=== PATIENT | female | born 1955 | race Caucasian/White ===

== ENCOUNTER 2020-02-12 09:50 | Inpatient (IN) | payer OTHER ==
[2020-02-12] MEDS ORDERED: DEXAMETHASONE SOD PHOSPHATE 10 MG/1 ML VIAL ONE (10:04)
[2020-02-12 10:12] LABS: BASO % 0.3 % (0-2.0); HEMATOCRIT 46.1 % (32.4-45.2); LYMPH % 8.2 % (8-40); MCH 29.8 pg (25.7-33.7); MCHC 32.5 g/dl (32.0-36.0); MEAN CELL VOLUME 91.6 fl (80-96); MONO % 6.8 % (3.8-10.2); NEUT % 84.7 % (42.8-82.8); PLATELET COUNT 158 K/MM3 (134-434); RBC 5.03 M/mm3 (3.60-5.2); RDW 14.3 % (11.6-15.6); WHITE BLOOD COUNT 8.1 K/mm3 (4.0-10.0)
[2020-02-12 10:19] LABS: INR 1.22 (0.83-1.09); PROTHROMBIN TIME (PATIENT) 14.7 SEC (9.7-13.0)
[2020-02-12 10:22] LABS: ACTIVATED PTT 28.3 SECONDS (25.2-36.5)
[2020-02-12 10:30] LABS: POTASSIUM 4.7 mmol/L (3.5-5.1)
[2020-02-12 10:32] LABS: ALBUMIN 3.3 g/dl (3.4-5.0); BLOOD UREA NITROGEN 34.2 mg/dL (7-18); CALCIUM 9.2 mg/dL (8.5-10.1)
[2020-02-12 10:35] LABS: CREATININE 1.9 mg/dL (0.55-1.3)
[2020-02-12] MEDS ORDERED: SODIUM CHLORIDE 0.9% 500 ML INFUS.BAG IV ONE (10:35)
[2020-02-12 10:37] LABS: BILIRUBIN,TOTAL 0.6 mg/dL (0.2-1); TOT PROT 6.9 g/dl (6.4-8.2)
[2020-02-12 11:21] LABS: VENOUS PCO2 42.1 mmHg (38-52)
[2020-02-12] MEDS ORDERED: CEFTRIAXONE 1 GM in DEXTROSE 5%-WATER - 100 ML IVPB ONE (11:23)
[2020-02-12] MEDS ORDERED: AZITHROMYCIN IVPB 500 MG in DEXTROSE 5%-WATER - 250 ML IVPB ONE (11:23)
[2020-02-12 11:27] LABS: MAGNESIUM 2.5 mg/dL (1.8-2.4)
[2020-02-12] MEDS ORDERED: CEFTRIAXONE 1 GM/50 ML BAG ONE (11:27)
[2020-02-12] MEDS ORDERED: AZITHROMYCIN IVPB 500 MG/250 ML BAG IVPB ONE (11:27)
[2020-02-12 11:31] LABS: PHOSPHOROUS 7.5 mg/dL (2.5-4.9)
[2020-02-12 11:33] LABS: VENOUS PH 7.151 (7.310-7.410)
[2020-02-12 11:36] LABS: N-TERMINAL BNP 15160.7 pg/ml (5-125)
[2020-02-12] MEDS ORDERED: SODIUM BICARBONATE 8.4% 50 MEQ/50 ML DISP.SYRIN IVPUSH ONE (12:25)
[2020-02-12] MEDS: SODIUM CHLORIDE 1,000 ML IV SCH (13:01)
[2020-02-12 14:11] LABS: ARTERIAL BLD GAS O2 SATURATION 85.2 mmHg (95-98); ARTERIAL BLOOD GAS BASE EXCESS -6.3 mmol/L (-2-2); ARTERIAL BLOOD GAS PO2 53.4 mmHg (80-100); ARTERIAL BLOOD GAS pH 7.317 (7.350-7.450)
[2020-02-12] MEDS ORDERED: ENOXAPARIN NA (PORCINE) 40 MG/0.4 ML DISP.SYRIN SQ SCH (14:20)
[2020-02-12] MEDS ORDERED: CHOLECALCIFEROL (VIT D3) 400 UNIT (10 MCG) TABLET PO SCH (15:00)
[2020-02-12] MEDS: FAMOTIDINE 10 MG TABLET PO SCH (15:25)
[2020-02-12] MEDS: ZINC SULFATE 220 MG CAPSULE (FP) PO SCH (15:26)
[2020-02-12] MEDS ORDERED: ALBUTEROL SO4 2.5/IPRATROPIUM 0.5 INH SOL 3 ML VIAL.NEB. NEB PRN (18:50)
[2020-02-12] MEDS ORDERED: ENOXAPARIN NA (PORCINE) 40 MG/0.4 ML DISP.SYRIN SQ ONE (19:46)
[2020-02-12] MEDS: ENOXAPARIN NA (PORCINE) 40 MG/0.4 ML DISP.SYRIN SQ SCH ×2 (19:55→22:10)
[2020-02-12] MEDS: ASCORBIC ACID 500 MG TABLET (FP) PO SCH (21:46)
[2020-02-12] MEDS: DOXYCYCLINE INJECTION 100 MG in DEXTROSE 5%-WATER - 100 ML IVPB SCH (21:48)
[2020-02-12] MEDS ORDERED: DOXYCYCLINE HYCLATE 100 MG VIAL ONE (21:50)
[2020-02-13] MEDS: SODIUM CHLORIDE 1,000 ML IV SCH (00:28)
[2020-02-13] MEDS ORDERED: SODIUM CHLORIDE 500 ML IV STA (00:54)
[2020-02-13 06:47] LABS: HEMATOCRIT 38.1 % (32.4-45.2); HEMOGLOBIN 12.7 GM/dL (10.7-15.3); LYMPH % 7.2 % (8-40); MCH 29.7 pg (25.7-33.7); MCHC 33.4 g/dl (32.0-36.0); MEAN CELL VOLUME 88.9 fl (80-96); MEAN PLT VOLUME 11.2 fl (7.5-11.1); MONO % 6.9 % (3.8-10.2); NEUT % 85.9 % (42.8-82.8); PLATELET COUNT 115 K/MM3 (134-434); RBC 4.28 M/mm3 (3.60-5.2); RDW 13.8 % (11.6-15.6); WHITE BLOOD COUNT 7.1 K/mm3 (4.0-10.0)
[2020-02-13 07:02] LABS: POTASSIUM 4.4 mmol/L (3.5-5.1)
[2020-02-13 07:04] LABS: ALBUMIN 2.6 g/dl (3.4-5.0); BLOOD UREA NITROGEN 28.7 mg/dL (7-18)
[2020-02-13 07:07] LABS: CREATININE 0.9 mg/dL (0.55-1.3); PHOSPHOROUS 3.2 mg/dL (2.5-4.9)
[2020-02-13 07:09] LABS: BILIRUBIN,TOTAL 0.3 mg/dL (0.2-1); TOT PROT 5.4 g/dl (6.4-8.2)
[2020-02-13] MEDS ORDERED: DEXTROSE 5%-WATER - 50 ML IVPB ONE (09:19)
[2020-02-13] MEDS ORDERED: cefTRIAXone SODIUM 1 GM VIAL ONE (09:19)
[2020-02-13] MEDS: CEFTRIAXONE 1 GM in DEXTROSE 5%-WATER - 50 ML IVPB SCH (09:25)
[2020-02-13] MEDS: DEXAMETHASONE SOD PHOSPHATE 4 MG/1 ML VIAL IVPUSH SCH (09:26)
[2020-02-13] MEDS: APIXABAN 5 MG TABLET PO SCH ×2 (09:26→21:06)
[2020-02-13] MEDS: ZINC SULFATE 220 MG CAPSULE (FP) PO SCH (09:26)
[2020-02-13] MEDS: CHOLECALCIFEROL (VIT D3) 400 UNIT (10 MCG) TABLET PO SCH (09:27)
[2020-02-13] MEDS: FAMOTIDINE 10 MG TABLET PO SCH (09:27)
[2020-02-13] MEDS: ASCORBIC ACID 500 MG TABLET (FP) PO SCH ×2 (09:28→21:06)
[2020-02-13] MEDS: DOXYCYCLINE INJECTION 100 MG in DEXTROSE 5%-WATER - 100 ML IVPB SCH (09:37)
[2020-02-13] MEDS ORDERED: AZITHROMYCIN IVPB 250 MG in DEXTROSE 5%-WATER - 250 ML IVPB SCH (10:00)
[2020-02-13] MEDS ORDERED: DEXAMETHASONE SOD PHOSPHATE 20 MG/5 ML VIAL IVPB SCH (10:00)
[2020-02-13] MEDS ORDERED: REMDESIVIR 200 MG in SODIUM CHLORIDE 210 ML IVPB ONE (12:00)
[2020-02-13] MEDS ORDERED: FUROSEMIDE 40 MG/4 ML INJECTABLE VIAL IVPUSH ONE (15:42)
[2020-02-13 17:39] LABS: EPI CELLS 25 /uL (0-25.1); HYALINE CASTS 11 /uL (0-3.1); URINE APPEARANCE CLOUDY; URINE BACTERIA 14 /uL (0-1359); URINE BILIRUBIN NEGATIVE (NEGATIVE); URINE COLOR YELLOW; URINE GLUCOSE (UA) NEGATIVE (NEGATIVE); URINE KETONE NEGATIVE (NEGATIVE); URINE LEUK ESTERASE NEGATIVE (NEGATIVE); URINE NITRITE NEGATIVE (NEGATIVE); URINE PROTEIN 1+ (NEGATIVE); URINE UROBILINOGEN 0.2 mg/dL (0.2-1.0); URINE WBC 33 /uL (0-25.8)
[2020-02-13 19:00] LABS: URINE RBC 24.6 /uL (0-23.9)
[2020-02-13] MEDS: LORazepam 1 MG TABLET PO PRN (21:06)
[2020-02-13] MEDS: FAMOTIDINE 20 MG TABLET PO SCH (21:06)
[2020-02-14] MEDS ORDERED: DEXTROSE 5%-WATER - 50 ML IVPB ONE (10:19)
[2020-02-14] MEDS ORDERED: cefTRIAXone SODIUM 1 GM VIAL ONE (10:19)
[2020-02-14] MEDS: APIXABAN 5 MG TABLET PO SCH ×2 (10:25→21:11)
[2020-02-14] MEDS: CHOLECALCIFEROL (VIT D3) 400 UNIT (10 MCG) TABLET PO SCH (10:25)
[2020-02-14] MEDS: FAMOTIDINE 20 MG TABLET PO SCH ×2 (10:25→21:11)
[2020-02-14] MEDS: ZINC SULFATE 220 MG CAPSULE (FP) PO SCH (10:25)
[2020-02-14] MEDS: DEXAMETHASONE SOD PHOSPHATE 4 MG/1 ML VIAL IVPUSH SCH (10:25)
[2020-02-14] MEDS: CEFTRIAXONE 1 GM in DEXTROSE 5%-WATER - 50 ML IVPB SCH (10:25)
[2020-02-14] MEDS: ASCORBIC ACID 500 MG TABLET (FP) PO SCH ×2 (10:25→21:11)
[2020-02-14 10:55] LABS: HEMATOCRIT 36.5 % (32.4-45.2); LYMPH % 5.5 % (8-40); MCH 29.5 pg (25.7-33.7); MEAN CELL VOLUME 89.3 fl (80-96); MEAN PLT VOLUME 10.9 fl (7.5-11.1); MONO % 8.5 % (3.8-10.2); PLATELET COUNT 131 K/MM3 (134-434); RBC 4.09 M/mm3 (3.60-5.2); WHITE BLOOD COUNT 8.3 K/mm3 (4.0-10.0)
[2020-02-14 10:58] LABS: INR 1.77 (0.83-1.09); PROTHROMBIN TIME (PATIENT) 21.1 SEC (9.7-13.0)
[2020-02-14 11:11] LABS: POTASSIUM 4.1 mmol/L (3.5-5.1)
[2020-02-14 11:13] LABS: CALCIUM 8.7 mg/dL (8.5-10.1)
[2020-02-14 11:14] LABS: ALBUMIN 2.7 g/dl (3.4-5.0); BLOOD UREA NITROGEN 21.2 mg/dL (7-18); MAGNESIUM 2.1 mg/dL (1.8-2.4)
[2020-02-14 11:17] LABS: CREATININE 0.8 mg/dL (0.55-1.3)
[2020-02-14 11:19] LABS: BILIRUBIN,TOTAL 1.1 mg/dL (0.2-1); PHOSPHOROUS 2.4 mg/dL (2.5-4.9); TOT PROT 5.7 g/dl (6.4-8.2)
[2020-02-14] MEDS ORDERED: REMDESIVIR 100 MG in SODIUM CHLORIDE 230 ML IVPB SCH (12:00)
[2020-02-14] MEDS ORDERED: FUROSEMIDE 40 MG/4 ML INJECTABLE VIAL IVPUSH ONE (16:51)
[2020-02-14 18:32] LABS: ARTERIAL BLD GAS O2 SATURATION 91.4 mmHg (95-98); ARTERIAL BLOOD GAS BASE EXCESS 4.3 mmol/L (-2-2); ARTERIAL BLOOD GAS PO2 58.9 mmHg (80-100); ARTERIAL BLOOD GAS pH 7.441 (7.350-7.450)
[2020-02-14 18:35] LABS: ALLENS TEST POSITIVE; PT'S TEMP 98.6
[2020-02-14 18:36] LABS: VENT MODE S/T; VENT RATE 16
[2020-02-14 21:10] LABS: HEP B CORE AB, TOT Positive (Negative)
[2020-02-14] MEDS: LORazepam 1 MG TABLET PO PRN (21:11)
[2020-02-14] MEDS ORDERED: LORazepam 2 MG/ML SDV VIAL IVPUSH ONE (23:52)
[2020-02-14 23:53] LABS: ARTERIAL BLD GAS O2 SATURATION 92.4 mmHg (95-98); ARTERIAL BLOOD GAS BASE EXCESS 1.7 mmol/L (-2-2); ARTERIAL BLOOD GAS PO2 62.8 mmHg (80-100)
[2020-02-15 00:08] LABS: ALLENS TEST POSITIVE; PT'S TEMP 98.6; VENT RATE 16
[2020-02-15 06:59] LABS: BASO % 0.2 % (0-2.0); HEMATOCRIT 38.9 % (32.4-45.2); HEMOGLOBIN 12.9 GM/dL (10.7-15.3); LYMPH % 3.8 % (8-40); MCH 29.7 pg (25.7-33.7); MCHC 33.1 g/dl (32.0-36.0); MEAN CELL VOLUME 89.7 fl (80-96); MEAN PLT VOLUME 10.6 fl (7.5-11.1); MONO % 7.9 % (3.8-10.2); NEUT % 88.1 % (42.8-82.8); PLATELET COUNT 127 K/MM3 (134-434); RBC 4.34 M/mm3 (3.60-5.2); RDW 13.8 % (11.6-15.6); WHITE BLOOD COUNT 8.9 K/mm3 (4.0-10.0)
[2020-02-15 07:07] LABS: INR 2.25 (0.83-1.09); PROTHROMBIN TIME (PATIENT) 26.6 SEC (9.7-13.0)
[2020-02-15 07:14] LABS: POTASSIUM 3.8 mmol/L (3.5-5.1)
[2020-02-15 07:34] LABS: CALCIUM 9.2 mg/dL (8.5-10.1)
[2020-02-15 07:35] LABS: ALBUMIN 2.8 g/dl (3.4-5.0); MAGNESIUM 2.2 mg/dL (1.8-2.4)
[2020-02-15 07:38] LABS: CREATININE 0.9 mg/dL (0.55-1.3); PHOSPHOROUS 3.7 mg/dL (2.5-4.9)
[2020-02-15 07:39] LABS: BILIRUBIN,TOTAL 0.7 mg/dL (0.2-1)
[2020-02-15] MEDS ORDERED: cefTRIAXone SODIUM 1 GM VIAL ONE (09:12)
[2020-02-15] MEDS ORDERED: DEXTROSE 5%-WATER - 50 ML IVPB ONE (09:12)
[2020-02-15] MEDS: CEFTRIAXONE 1 GM in DEXTROSE 5%-WATER - 50 ML IVPB SCH (09:22)
[2020-02-15] MEDS: DEXAMETHASONE SOD PHOSPHATE 4 MG/1 ML VIAL IVPUSH SCH (09:23)
[2020-02-15] MEDS: CHOLECALCIFEROL (VIT D3) 400 UNIT (10 MCG) TABLET PO SCH (09:24)
[2020-02-15] MEDS: FAMOTIDINE 20 MG TABLET PO SCH (09:24)
[2020-02-15] MEDS: ZINC SULFATE 220 MG CAPSULE (FP) PO SCH (09:24)
[2020-02-15] MEDS: ASCORBIC ACID 500 MG TABLET (FP) PO SCH ×2 (09:25→23:47)
[2020-02-15] MEDS: APIXABAN 5 MG TABLET PO SCH (09:25)
[2020-02-15] MEDS ORDERED: LORazepam 2 MG/ML SDV VIAL ONE (17:22)
[2020-02-15] MEDS ORDERED: LORazepam 2 MG/ML SDV VIAL IVPUSH ONE (18:31)
[2020-02-15] MEDS ORDERED: HALOPERIDOL LACTATE 5 MG/ML ONE (18:54)
[2020-02-15] MEDS ORDERED: HALOPERIDOL LACTATE 5 MG/ML IM ONE (18:54)
[2020-02-15] MEDS ORDERED: SUCCINYLCHOLINE CHLORIDE 200 MG/10 ML VIAL IVPUSH ONE ×2 (19:12→21:01)
[2020-02-15] MEDS ORDERED: SUCCINYLCHOLINE CHLORIDE 200 MG/10 ML SYRINGE IVPUSH ONE (19:12)
[2020-02-15] MEDS ORDERED: RAPID SEQUENCE INTUBATION KIT NR ONE (19:14)
[2020-02-15] MEDS ORDERED: PROPOFOL 1,000,000 MCG/100 ML VIAL ONE (19:45)
[2020-02-15] MEDS ORDERED: PROPOFOL 200 MG/20 ML VIAL IVPUSH ONE (19:48)
[2020-02-15] MEDS ORDERED: ROCURONIUM BROMIDE 50 MG/5 ML VIAL IV ONE (19:49)
[2020-02-15] MEDS: PROPOFOL 1,000,000 MCG/100 ML VIAL IVPB SCH (20:00)
[2020-02-15] MEDS: MIDAZOLAM 100 MG/100 ML MG IVPB SCH (21:00)
[2020-02-15 21:39] LABS: ARTERIAL BLD GAS O2 SATURATION 97.7 mmHg (95-98); ARTERIAL BLOOD GAS BASE EXCESS 6.9 mmol/L (-2-2); ARTERIAL BLOOD GAS PO2 94.3 mmHg (80-100); ARTERIAL BLOOD GAS pH 7.488 (7.350-7.450)
[2020-02-15 21:42] LABS: ALLENS TEST POSITIVE
[2020-02-15 21:43] LABS: VENT MODE A/C; VENT RATE 20
[2020-02-15] MEDS ORDERED: ENOXAPARIN NA (PORCINE) 80 MG/0.8 ML DISP.SYRIN SQ SCH (22:00)
[2020-02-15] MEDS ORDERED: MUPIROCIN 2% TOPICAL OINTMENT FOR DECOLONIZATION NS SCH (22:00)
[2020-02-15] MEDS ORDERED: methylPREDNISolone NA SUCC 40 MG/1 ML VIAL IVPUSH SCH (22:00)
[2020-02-15] MEDS ORDERED: CHLORHEXIDINE GLUCONATE 4% CLEANSER FOR DECOLONIZATION TP SCH (22:00)
[2020-02-16] MEDS ORDERED: ALBUTEROL SO4 2.5/IPRATROPIUM 0.5 INH SOL 3 ML VIAL.NEB. NEB PRN (04:38)
[2020-02-16] MEDS ORDERED: LORazepam 1 MG TABLET PO PRN (04:38)
[2020-02-16 05:23] LABS: ARTERIAL BLD GAS O2 SATURATION 99.1 mmHg (95-98); ARTERIAL BLOOD GAS BASE EXCESS 7.7 mmol/L (-2-2); ARTERIAL BLOOD GAS pH 7.562 (7.350-7.450)
[2020-02-16 05:24] LABS: ALLENS TEST POSITIVE
[2020-02-16 05:25] LABS: VENT MODE A/C; VENT RATE 20
[2020-02-16] MEDS ORDERED: FENTANYL IVPB 500 MCG/100 ML BAG IVPB SCH (07:45)
[2020-02-16] MEDS ORDERED: FENTANYL NS IVPB 500 MCG/100 ML BAG IVPB ONE (07:57)
[2020-02-16] MEDS ORDERED: PT OWN MED DRAWER 7, Y5N ONE (09:05)
[2020-02-16] MEDS: ENOXAPARIN NA (PORCINE) 80 MG/0.8 ML DISP.SYRIN SQ SCH ×2 (09:49→21:58)
[2020-02-16] MEDS: DEXAMETHASONE SOD PHOSPHATE 4 MG/1 ML VIAL IVPUSH SCH (09:50)
[2020-02-16] MEDS: CHOLECALCIFEROL (VIT D3) 1,000 UNIT (25 MCG) TABLET PO SCH (09:50)
[2020-02-16] MEDS: ZINC SULFATE 220 MG CAPSULE (FP) PO SCH (09:50)
[2020-02-16] MEDS: FAMOTIDINE 20 MG/50 ML IVPB 20 MG/50 ML MG IVPB SCH (09:51)
[2020-02-16] MEDS: ASCORBIC ACID 500 MG TABLET (FP) PO SCH ×2 (09:51→21:58)
[2020-02-16] MEDS: LACTATED RINGERS SOLUTION 1,000 ML/1,000 ML INFUS.BAG IV SCH (09:52)
[2020-02-16] MEDS ORDERED: DEXAMETHASONE SOD PHOSPHATE 4 MG/1 ML VIAL IVPUSH SCH (10:00)
[2020-02-16 12:14] LABS: PH,URINE 5.5 (5.0-8.0); URINE APPEARANCE CLEAR; URINE BILIRUBIN NEGATIVE (NEGATIVE); URINE COLOR YELLOW; URINE GLUCOSE (UA) NEGATIVE (NEGATIVE); URINE KETONE NEGATIVE (NEGATIVE); URINE LEUK ESTERASE NEGATIVE (NEGATIVE); URINE NITRITE NEGATIVE (NEGATIVE); URINE PROTEIN NEGATIVE (NEGATIVE); URINE UROBILINOGEN 0.2 mg/dL (0.2-1.0)
[2020-02-16 13:33] LABS: BASO % 0.6 % (0-2.0); EOS % 0.1 % (0-4.5); HEMATOCRIT 40.2 % (32.4-45.2); HEMOGLOBIN 13.2 GM/dL (10.7-15.3); LYMPH % 4.5 % (8-40); MCH 29.5 pg (25.7-33.7); MCHC 32.8 g/dl (32.0-36.0); MEAN PLT VOLUME 10.5 fl (7.5-11.1); MONO % 5.3 % (3.8-10.2); NEUT % 89.5 % (42.8-82.8); PLATELET COUNT 133 K/MM3 (134-434); RBC 4.46 M/mm3 (3.60-5.2); WHITE BLOOD COUNT 8.3 K/mm3 (4.0-10.0)
[2020-02-16 13:56] LABS: POTASSIUM 3.9 mmol/L (3.5-5.1)
[2020-02-16 13:59] LABS: ALBUMIN 2.7 g/dl (3.4-5.0); CALCIUM 9.6 mg/dL (8.5-10.1)
[2020-02-16 14:00] LABS: BLOOD UREA NITROGEN 33.4 mg/dL (7-18)
[2020-02-16 14:01] LABS: MAGNESIUM 2.5 mg/dL (1.8-2.4)
[2020-02-16 14:02] LABS: PHOSPHOROUS 3.7 mg/dL (2.5-4.9)
[2020-02-16 14:03] LABS: CREATININE 0.8 mg/dL (0.55-1.3)
[2020-02-16 14:04] LABS: TOT PROT 6.2 g/dl (6.4-8.2)
[2020-02-16] MEDS: PROPOFOL 1,000,000 MCG/100 ML VIAL IVPB SCH (21:55)
[2020-02-17 05:44] LABS: ALLENS TEST POSITIVE; ARTERIAL BLD GAS O2 SATURATION 94.1 mmHg (95-98); ARTERIAL BLOOD GAS BASE EXCESS 5.7 mmol/L (-2-2); ARTERIAL BLOOD GAS PO2 65.6 mmHg (80-100); ARTERIAL BLOOD GAS pH 7.477 (7.350-7.450)
[2020-02-17 05:46] LABS: VENT MODE A/C
[2020-02-17 05:47] LABS: VENT RATE 20
[2020-02-17 07:47] LABS: BASO % 0.6 % (0-2.0); EOS % 0.1 % (0-4.5); HEMATOCRIT 38.3 % (32.4-45.2); HEMOGLOBIN 12.4 GM/dL (10.7-15.3); LYMPH % 6.4 % (8-40); MCH 29.5 pg (25.7-33.7); MCHC 32.5 g/dl (32.0-36.0); MEAN CELL VOLUME 90.8 fl (80-96); MEAN PLT VOLUME 10.9 fl (7.5-11.1); MONO % 5.1 % (3.8-10.2); NEUT % 87.8 % (42.8-82.8); PLATELET COUNT 146 K/MM3 (134-434); RBC 4.21 M/mm3 (3.60-5.2); RDW 14.1 % (11.6-15.6); WHITE BLOOD COUNT 6.8 K/mm3 (4.0-10.0)
[2020-02-17 08:11] LABS: POTASSIUM 4.7 mmol/L (3.5-5.1)
[2020-02-17 08:19] LABS: BLOOD UREA NITROGEN 35.6 mg/dL (7-18); CALCIUM 9.2 mg/dL (8.5-10.1)
[2020-02-17 08:20] LABS: ALBUMIN 2.5 g/dl (3.4-5.0); MAGNESIUM 2.6 mg/dL (1.8-2.4)
[2020-02-17 08:21] LABS: BILIRUBIN,TOTAL 0.6 mg/dL (0.2-1); TOT PROT 5.8 g/dl (6.4-8.2)
[2020-02-17 08:23] LABS: CREATININE 0.9 mg/dL (0.55-1.3); PHOSPHOROUS 4.7 mg/dL (2.5-4.9)
[2020-02-17] MEDS: LACTATED RINGERS SOLUTION 1,000 ML/1,000 ML INFUS.BAG IV SCH (08:30)
[2020-02-17] MEDS: CHOLECALCIFEROL (VIT D3) 1,000 UNIT (25 MCG) TABLET PO SCH (09:35)
[2020-02-17] MEDS: ZINC SULFATE 220 MG CAPSULE (FP) PO SCH (09:35)
[2020-02-17] MEDS: DEXAMETHASONE SOD PHOSPHATE 4 MG/1 ML VIAL IVPUSH SCH (09:35)
[2020-02-17] MEDS: ASCORBIC ACID 500 MG TABLET (FP) PO SCH ×2 (09:35→21:48)
[2020-02-17] MEDS: FAMOTIDINE 20 MG/50 ML IVPB 20 MG/50 ML MG IVPB SCH (09:35)
[2020-02-17] MEDS: ENOXAPARIN NA (PORCINE) 80 MG/0.8 ML DISP.SYRIN SQ SCH ×2 (09:37→21:48)
[2020-02-17] MEDS ORDERED: ACETAMINOPHEN 325 MG TABLET (FP) PO PRN (10:37)
[2020-02-17] MEDS ORDERED: SODIUM CHLORIDE 0.45% 1,000 ML IV SCH (10:45)
[2020-02-17] MEDS: FENTANYL NS IVPB 500 MCG/100 ML BAG IVPB SCH (17:29)
[2020-02-17] MEDS: MIDAZOLAM 100 MG/100 ML MG IVPB SCH (17:37)
[2020-02-17] MEDS ORDERED: SODIUM CHLORIDE 0.9% 500 ML INFUS.BAG IV ONE (20:13)
[2020-02-17] MEDS ORDERED: FENTANYL IVPB 500 MCG/100 ML BAG IVPB ONE (21:44)
[2020-02-17] MEDS ORDERED: PT OWN MED DRAWER 7, Y5N ONE (21:44)
[2020-02-18] MEDS: NOREPINEPHRINE BITARTRATE 16,000 MCG in SODIUM CHLORIDE 484 ML IV SCH (01:00)
[2020-02-18] MEDS ORDERED: FENTANYL IVPB 500 MCG/100 ML BAG IVPB ONE (05:25)
[2020-02-18 07:27] LABS: BASO % 0.2 % (0-2.0); EOS % 0.1 % (0-4.5); HEMATOCRIT 40.8 % (32.4-45.2); HEMOGLOBIN 13.3 GM/dL (10.7-15.3); MCH 29.5 pg (25.7-33.7); MCHC 32.7 g/dl (32.0-36.0); MEAN CELL VOLUME 90.4 fl (80-96); MEAN PLT VOLUME 10.5 fl (7.5-11.1); MONO % 8.1 % (3.8-10.2); NEUT % 88.6 % (42.8-82.8); PLATELET COUNT 229 K/MM3 (134-434); RBC 4.52 M/mm3 (3.60-5.2); RDW 13.8 % (11.6-15.6); WHITE BLOOD COUNT 12.1 K/mm3 (4.0-10.0)
[2020-02-18 07:44] LABS: POTASSIUM 4.1 mmol/L (3.5-5.1)
[2020-02-18 07:50] LABS: ALBUMIN 2.4 g/dl (3.4-5.0)
[2020-02-18 07:51] LABS: BLOOD UREA NITROGEN 38.8 mg/dL (7-18); CALCIUM 8.8 mg/dL (8.5-10.1)
[2020-02-18 07:52] LABS: MAGNESIUM 2.3 mg/dL (1.8-2.4)
[2020-02-18 07:54] LABS: CREATININE 0.8 mg/dL (0.55-1.3); PHOSPHOROUS 3.9 mg/dL (2.5-4.9)
[2020-02-18 07:55] LABS: BILIRUBIN,TOTAL 0.9 mg/dL (0.2-1); TOT PROT 5.9 g/dl (6.4-8.2)
[2020-02-18] MEDS: DEXAMETHASONE SOD PHOSPHATE 4 MG/1 ML VIAL IVPUSH SCH (09:51)
[2020-02-18] MEDS: FAMOTIDINE 20 MG/50 ML IVPB 20 MG/50 ML MG IVPB SCH (09:53)
[2020-02-18] MEDS: ASCORBIC ACID 500 MG TABLET (FP) PO SCH ×2 (09:53→22:07)
[2020-02-18] MEDS: CHOLECALCIFEROL (VIT D3) 1,000 UNIT (25 MCG) TABLET PO SCH (09:53)
[2020-02-18] MEDS: ENOXAPARIN NA (PORCINE) 80 MG/0.8 ML DISP.SYRIN SQ SCH ×2 (09:53→22:07)
[2020-02-18] MEDS: ZINC SULFATE 220 MG CAPSULE (FP) PO SCH (09:53)
[2020-02-18] MEDS: FENTANYL NS IVPB 500 MCG/100 ML BAG IVPB SCH ×2 (12:42→17:55)
[2020-02-18] MEDS: LACTATED RINGERS SOLUTION 1,000 ML/1,000 ML INFUS.BAG IV SCH (18:32)
[2020-02-18] MEDS ORDERED: MIDAZOLAM IN 0.9 % SOD.CHLORID 1 MG/1 ML PLAST..BAG ONE ×2 (18:35→20:27)
[2020-02-19] MEDS: DEXAMETHASONE SOD PHOSPHATE 4 MG/1 ML VIAL IVPUSH SCH (09:21)
[2020-02-19] MEDS: ENOXAPARIN NA (PORCINE) 80 MG/0.8 ML DISP.SYRIN SQ SCH ×2 (09:26→21:40)
[2020-02-19] MEDS: CHOLECALCIFEROL (VIT D3) 1,000 UNIT (25 MCG) TABLET PO SCH (09:26)
[2020-02-19] MEDS: ZINC SULFATE 220 MG CAPSULE (FP) PO SCH (09:26)
[2020-02-19] MEDS: ASCORBIC ACID 500 MG TABLET (FP) PO SCH ×2 (09:27→21:40)
[2020-02-19] MEDS: FAMOTIDINE 20 MG/50 ML IVPB 20 MG/50 ML MG IVPB SCH (09:27)
[2020-02-19 11:43] LABS: BASO % 0.1 % (0-2.0); EOS % 0.4 % (0-4.5); HEMATOCRIT 37.4 % (32.4-45.2); HEMOGLOBIN 12.4 GM/dL (10.7-15.3); MCH 29.8 pg (25.7-33.7); MCHC 33.1 g/dl (32.0-36.0); MEAN CELL VOLUME 90.1 fl (80-96); MEAN PLT VOLUME 10.3 fl (7.5-11.1); MONO % 0.2 % (3.8-10.2); NEUT % 96.3 % (42.8-82.8); PLATELET COUNT 169 K/MM3 (134-434); RBC 4.16 M/mm3 (3.60-5.2); RDW 13.6 % (11.6-15.6); WHITE BLOOD COUNT 9.6 K/mm3 (4.0-10.0)
[2020-02-19 12:00] LABS: POTASSIUM 4.4 mmol/L (3.5-5.1)
[2020-02-19 12:01] LABS: CALCIUM 8.8 mg/dL (8.5-10.1)
[2020-02-19 12:02] LABS: MAGNESIUM 2.1 mg/dL (1.8-2.4)
[2020-02-19 12:05] LABS: CREATININE 0.6 mg/dL (0.55-1.3); PHOSPHOROUS 2.3 mg/dL (2.5-4.9)
[2020-02-19 12:07] LABS: TOT PROT 5.2 g/dl (6.4-8.2)
[2020-02-19 12:33] LABS: ANISOCYTOSIS 0; HELMET CELLS 0; HOWELL-JOLLY BODIES 0; MACROCYTOSIS 0; OVALOCYTE 0; PLATELET ESTIMATE NORMAL; ROULEAU 0; SICKELED CELLS 0; TARGET CELLS 0; TEAR DROP CELLS 0; TOXIC GRANULATION 0
[2020-02-19] MEDS ORDERED: FENTANYL IVPB 500 MCG/100 ML BAG IVPB ONE (15:59)
[2020-02-19] MEDS: LACTATED RINGERS SOLUTION 1,000 ML/1,000 ML INFUS.BAG IV SCH (18:25)
[2020-02-19] MEDS: FENTANYL NS IVPB 500 MCG/100 ML BAG IVPB SCH (19:05)
[2020-02-19] MEDS ORDERED: MIDAZOLAM IN 0.9 % SOD.CHLORID 1 MG/1 ML PLAST..BAG ONE (22:04)
[2020-02-20 07:49] LABS: BASO % 0.2 % (0-2.0); EOS % 0.1 % (0-4.5); HEMATOCRIT 37.5 % (32.4-45.2); HEMOGLOBIN 12.3 GM/dL (10.7-15.3); LYMPH % 5.6 % (8-40); MCH 29.2 pg (25.7-33.7); MCHC 32.8 g/dl (32.0-36.0); MEAN CELL VOLUME 89.1 fl (80-96); MEAN PLT VOLUME 11.2 fl (7.5-11.1); MONO % 7.5 % (3.8-10.2); NEUT % 86.6 % (42.8-82.8); PLATELET COUNT 186 K/MM3 (134-434); RBC 4.21 M/mm3 (3.60-5.2); RDW 13.5 % (11.6-15.6); WHITE BLOOD COUNT 8.2 K/mm3 (4.0-10.0)
[2020-02-20 07:53] LABS: POTASSIUM 4.7 mmol/L (3.5-5.1)
[2020-02-20 07:55] LABS: BLOOD UREA NITROGEN 30.2 mg/dL (7-18)
[2020-02-20 07:58] LABS: CREATININE 0.5 mg/dL (0.55-1.3)
[2020-02-20 08:00] LABS: BILIRUBIN,TOTAL 0.5 mg/dL (0.2-1); TOT PROT 5.2 g/dl (6.4-8.2)
[2020-02-20] MEDS: FAMOTIDINE 20 MG/50 ML IVPB 20 MG/50 ML MG IVPB SCH (09:51)
[2020-02-20] MEDS: DEXAMETHASONE SOD PHOSPHATE 4 MG/1 ML VIAL IVPUSH SCH (09:52)
[2020-02-20] MEDS: CHOLECALCIFEROL (VIT D3) 1,000 UNIT (25 MCG) TABLET PO SCH (09:53)
[2020-02-20] MEDS: ASCORBIC ACID 500 MG TABLET (FP) PO SCH ×2 (09:53→22:57)
[2020-02-20] MEDS: ENOXAPARIN NA (PORCINE) 80 MG/0.8 ML DISP.SYRIN SQ SCH ×2 (10:43→22:57)
[2020-02-20] MEDS: ZINC SULFATE 220 MG CAPSULE (FP) PO SCH (10:43)
[2020-02-20] MEDS ORDERED: MIDAZOLAM IN 0.9 % SOD.CHLORID 1 MG/1 ML PLAST..BAG ONE (11:14)
[2020-02-20] MEDS ORDERED: FENTANYL IVPB 500 MCG/100 ML BAG IVPB ONE (11:15)
[2020-02-20] MEDS: MIDAZOLAM 100 MG/100 ML MG IVPB SCH ×2 (11:18→19:30)
[2020-02-20] MEDS: FENTANYL NS IVPB 500 MCG/100 ML BAG IVPB SCH ×3 (11:19→19:15)
[2020-02-20] MEDS ORDERED: FENTANYL NS IVPB 500 MCG/100 ML BAG IVPB ONE (17:46)
[2020-02-20] MEDS ORDERED: BENZOIN/ALOE VERA/STORAX/TOLU 58 ML BOTTLE ONE (17:49)
[2020-02-20] MEDS: LACTATED RINGERS SOLUTION 1,000 ML/1,000 ML INFUS.BAG IV SCH (19:00)
[2020-02-20] MEDS: NOREPINEPHRINE BITARTRATE 16,000 MCG in SODIUM CHLORIDE 484 ML IV SCH (22:45)
[2020-02-21] MEDS: FENTANYL NS IVPB 500 MCG/100 ML BAG IVPB SCH ×4 (01:05→21:25)
[2020-02-21] MEDS ORDERED: MIDAZOLAM IN 0.9 % SOD.CHLORID 1 MG/1 ML PLAST..BAG ONE ×2 (01:47→17:37)
[2020-02-21 07:25] LABS: BASO % 0.2 % (0-2.0); EOS % 0.2 % (0-4.5); HEMATOCRIT 37.1 % (32.4-45.2); HEMOGLOBIN 12.2 GM/dL (10.7-15.3); LYMPH % 5.3 % (8-40); MCH 29.5 pg (25.7-33.7); MCHC 32.8 g/dl (32.0-36.0); MEAN CELL VOLUME 89.9 fl (80-96); MEAN PLT VOLUME 11.5 fl (7.5-11.1); MONO % 8.2 % (3.8-10.2); NEUT % 86.1 % (42.8-82.8); PLATELET COUNT 196 K/MM3 (134-434); RBC 4.12 M/mm3 (3.60-5.2); RDW 13.7 % (11.6-15.6); WHITE BLOOD COUNT 9.6 K/mm3 (4.0-10.0)
[2020-02-21 07:45] LABS: ALBUMIN 2.1 g/dl (3.4-5.0); CALCIUM 8.8 mg/dL (8.5-10.1)
[2020-02-21 07:46] LABS: BLOOD UREA NITROGEN 38.4 mg/dL (7-18); MAGNESIUM 2.1 mg/dL (1.8-2.4)
[2020-02-21 07:48] LABS: CREATININE 0.5 mg/dL (0.55-1.3)
[2020-02-21 07:49] LABS: PHOSPHOROUS 3.5 mg/dL (2.5-4.9)
[2020-02-21 07:50] LABS: BILIRUBIN,TOTAL 0.7 mg/dL (0.2-1); TOT PROT 5.5 g/dl (6.4-8.2)
[2020-02-21] MEDS ORDERED: FENTANYL IVPB 500 MCG/100 ML BAG IVPB ONE (08:06)
[2020-02-21] MEDS ORDERED: PT OWN MED DRAWER 7, Y5N ONE (08:07)
[2020-02-21] MEDS: LACTATED RINGERS SOLUTION 1,000 ML/1,000 ML INFUS.BAG IV SCH ×2 (08:15→18:38)
[2020-02-21] MEDS ORDERED: FENTANYL NS IVPB 500 MCG/100 ML BAG IVPB ONE (08:33)
[2020-02-21] MEDS: AMINO ACIDS/PROTEIN HYDROLYS 30 ML LIQUID.PKT PO SCH (09:50)
[2020-02-21] MEDS: FAMOTIDINE 20 MG/50 ML IVPB 20 MG/50 ML MG IVPB SCH (10:08)
[2020-02-21] MEDS: CHOLECALCIFEROL (VIT D3) 1,000 UNIT (25 MCG) TABLET PO SCH (10:13)
[2020-02-21] MEDS: ENOXAPARIN NA (PORCINE) 80 MG/0.8 ML DISP.SYRIN SQ SCH ×2 (10:13→23:43)
[2020-02-21] MEDS: ASCORBIC ACID 500 MG TABLET (FP) PO SCH ×2 (10:14→23:44)
[2020-02-21] MEDS: DEXAMETHASONE SOD PHOSPHATE 4 MG/1 ML VIAL IVPUSH SCH (10:14)
[2020-02-21] MEDS: ZINC SULFATE 220 MG CAPSULE (FP) PO SCH (10:14)
[2020-02-21] MEDS: MIDAZOLAM 100 MG/100 ML MG IVPB SCH (14:37)
[2020-02-21] MEDS ORDERED: ACETAMINOPHEN 1000 MG/100 ML VIAL (NON FORMULARY) IVPB PRN (17:58)
[2020-02-21] MEDS ORDERED: NOREPINEPHRINE D5W PREMIX 16,000 MCG/500 ML BAG IVPB ONE (19:13)
[2020-02-21] MEDS ORDERED: VANCOMYCIN/WATER 1,250 MG/250 ML BAG IVPB STA (19:58)
[2020-02-21] MEDS ORDERED: PIPERACILLIN/TAZOB 3.375 GM 3.375 GM in DEXTROSE 5%-WATER - 50 ML IVPB ONE (19:59)
[2020-02-21] MEDS ORDERED: VANCOMYCIN HCL 1,250 MG in DEXTROSE 5%-WATER - 250 ML IVPB ONE (20:15)
[2020-02-21] MEDS ORDERED: PIPERACILLIN/TAZOBACTAM 3.375 GM VIAL IVPB ONE (20:41)
[2020-02-21] MEDS ORDERED: DEXTROSE 5%-WATER - 50 ML IVPB ONE (20:41)
[2020-02-21] MEDS: NOREPINEPHRINE BITARTRATE 16,000 MCG in SODIUM CHLORIDE 484 ML IV SCH (22:00)
[2020-02-22] MEDS: FENTANYL NS IVPB 500 MCG/100 ML BAG IVPB SCH ×3 (04:37→15:29)
[2020-02-22 07:12] LABS: BASO % 0.4 % (0-2.0); HEMATOCRIT 37.8 % (32.4-45.2); HEMOGLOBIN 12.4 GM/dL (10.7-15.3); LYMPH % 3.3 % (8-40); MCH 29.3 pg (25.7-33.7); MCHC 32.9 g/dl (32.0-36.0); MEAN CELL VOLUME 89.2 fl (80-96); MEAN PLT VOLUME 11.1 fl (7.5-11.1); MONO % 5.7 % (3.8-10.2); NEUT % 90.6 % (42.8-82.8); PLATELET COUNT 206 K/MM3 (134-434); RBC 4.24 M/mm3 (3.60-5.2); RDW 13.7 % (11.6-15.6); WHITE BLOOD COUNT 12.2 K/mm3 (4.0-10.0)
[2020-02-22 07:20] LABS: POTASSIUM 4.5 mmol/L (3.5-5.1)
[2020-02-22 07:22] LABS: CALCIUM 8.6 mg/dL (8.5-10.1)
[2020-02-22 07:23] LABS: BLOOD UREA NITROGEN 34.9 mg/dL (7-18)
[2020-02-22 07:26] LABS: CREATININE 0.6 mg/dL (0.55-1.3); PHOSPHOROUS 3.7 mg/dL (2.5-4.9)
[2020-02-22 07:27] LABS: BILIRUBIN,TOTAL 0.6 mg/dL (0.2-1); TOT PROT 5.5 g/dl (6.4-8.2)
[2020-02-22] MEDS ORDERED: MIDAZOLAM IN 0.9 % SOD.CHLORID 1 MG/1 ML PLAST..BAG ONE (08:20)
[2020-02-22] MEDS: MIDAZOLAM 100 MG/100 ML MG IVPB SCH (08:30)
[2020-02-22] MEDS: AMINO ACIDS/PROTEIN HYDROLYS 30 ML LIQUID.PKT PO SCH (08:44)
[2020-02-22] MEDS: FAMOTIDINE 20 MG/50 ML IVPB 20 MG/50 ML MG IVPB SCH (09:44)
[2020-02-22] MEDS: ENOXAPARIN NA (PORCINE) 80 MG/0.8 ML DISP.SYRIN SQ SCH ×2 (09:46→22:28)
[2020-02-22] MEDS: ZINC SULFATE 220 MG CAPSULE (FP) PO SCH (09:47)
[2020-02-22] MEDS: CHOLECALCIFEROL (VIT D3) 1,000 UNIT (25 MCG) TABLET PO SCH (09:47)
[2020-02-22] MEDS: ASCORBIC ACID 500 MG TABLET (FP) PO SCH ×2 (09:47→22:28)
[2020-02-22] MEDS: DEXAMETHASONE SOD PHOSPHATE 4 MG/1 ML VIAL IVPUSH SCH (09:47)
[2020-02-22] MEDS: LACTATED RINGERS SOLUTION 1,000 ML/1,000 ML INFUS.BAG IV SCH ×2 (09:48→18:19)
[2020-02-22] MEDS ORDERED: PIPERACILLIN/TAZOBACTAM 3.375 GM VIAL IVPB ONE (15:24)
[2020-02-22] MEDS ORDERED: DEXTROSE 5%-WATER - 50 ML IVPB ONE (15:24)
[2020-02-22] MEDS: PIPERACILLIN/TAZOB 3.375 GM 3.375 GM in DEXTROSE 5%-WATER - 50 ML IVPB SCH (15:28)
[2020-02-23] MEDS: FENTANYL NS IVPB 500 MCG/100 ML BAG IVPB SCH ×4 (01:05→13:18)
[2020-02-23] MEDS ORDERED: MIDAZOLAM IN 0.9 % SOD.CHLORID 1 MG/1 ML PLAST..BAG ONE ×2 (02:04→09:16)
[2020-02-23] MEDS ORDERED: PIPERACILLIN/TAZOBACTAM 3.375 GM VIAL IVPB ONE ×3 (03:15→16:40)
[2020-02-23] MEDS ORDERED: DEXTROSE 5%-WATER - 50 ML IVPB ONE ×3 (03:15→16:41)
[2020-02-23] MEDS: PIPERACILLIN/TAZOB 3.375 GM 3.375 GM in DEXTROSE 5%-WATER - 50 ML IVPB SCH ×3 (03:20→17:01)
[2020-02-23] MEDS: MIDAZOLAM 100 MG/100 ML MG IVPB SCH ×4 (03:21→10:05)
[2020-02-23] MEDS: NOREPINEPHRINE BITARTRATE 16,000 MCG in SODIUM CHLORIDE 484 ML IV SCH (03:24)
[2020-02-23 08:01] LABS: BASO % 0.9 % (0-2.0); EOS % 0.1 % (0-4.5); HEMATOCRIT 34.3 % (32.4-45.2); HEMOGLOBIN 11.1 GM/dL (10.7-15.3); LYMPH % 3.9 % (8-40); MCHC 32.4 g/dl (32.0-36.0); MEAN CELL VOLUME 89.5 fl (80-96); MONO % 7.5 % (3.8-10.2); NEUT % 87.6 % (42.8-82.8); PLATELET COUNT 197 K/MM3 (134-434); RBC 3.83 M/mm3 (3.60-5.2); RDW 13.6 % (11.6-15.6)
[2020-02-23 08:10] LABS: POTASSIUM 4.5 mmol/L (3.5-5.1)
[2020-02-23 08:15] LABS: ALBUMIN 1.9 g/dl (3.4-5.0); BLOOD UREA NITROGEN 33.3 mg/dL (7-18); CALCIUM 8.9 mg/dL (8.5-10.1); MAGNESIUM 2.1 mg/dL (1.8-2.4)
[2020-02-23 08:18] LABS: CREATININE 0.4 mg/dL (0.55-1.3); PHOSPHOROUS 2.8 mg/dL (2.5-4.9)
[2020-02-23 08:19] LABS: BILIRUBIN,TOTAL 0.4 mg/dL (0.2-1); TOT PROT 5.1 g/dl (6.4-8.2)
[2020-02-23] MEDS: AMINO ACIDS/PROTEIN HYDROLYS 30 ML LIQUID.PKT PO SCH (09:04)
[2020-02-23] MEDS: FAMOTIDINE 20 MG/50 ML IVPB 20 MG/50 ML MG IVPB SCH (09:09)
[2020-02-23] MEDS: DEXAMETHASONE SOD PHOSPHATE 4 MG/1 ML VIAL IVPUSH SCH (09:10)
[2020-02-23] MEDS: ZINC SULFATE 220 MG CAPSULE (FP) PO SCH (09:11)
[2020-02-23] MEDS: CHOLECALCIFEROL (VIT D3) 1,000 UNIT (25 MCG) TABLET PO SCH (09:11)
[2020-02-23] MEDS: ASCORBIC ACID 500 MG TABLET (FP) PO SCH (09:11)
[2020-02-23] MEDS ORDERED: ENOXAPARIN NA (PORCINE) 80 MG/0.8 ML DISP.SYRIN SQ SCH (10:00)
[2020-02-23] MEDS: ENOXAPARIN NA (PORCINE) 80 MG/0.8 ML DISP.SYRIN SQ SCH ×2 (10:05→23:25)
[2020-02-23] MEDS ORDERED: DOCUSATE SODIUM 100 MG CAPSULE (FP) PO SCH (11:15)
[2020-02-23] MEDS: DOCUSATE NA 100 MG/10 ML UNIT-DOSE CUPS NGT SCH (13:17)
[2020-02-23] MEDS: POLYETHYLENE GLYCOL 3350 119 GM BTL NGT SCH (13:17)
[2020-02-23] MEDS ORDERED: FENTANYL NS IVPB 500 MCG/100 ML BAG IVPB ONE (18:16)
[2020-02-23] MEDS ORDERED: SODIUM BICARBONATE 8.4% 50 MEQ/50 ML VIAL ONE (19:41)
[2020-02-23] MEDS ORDERED: DEXAMETHASONE SOD PHOSPHATE 4 MG/1 ML VIAL IVPUSH ONE (22:00)
[2020-02-23] MEDS: SENNOSIDES 8.8 MG/5 ML BULK BOTTLE NGT SCH (23:27)
[2020-02-23] MEDS: ASCORBIC ACID 500 MG TABLET (FP) NGT SCH (23:27)
[2020-02-24] MEDS ORDERED: DEXTROSE 5%-WATER - 50 ML IVPB ONE ×3 (02:50→17:11)
[2020-02-24] MEDS ORDERED: PIPERACILLIN/TAZOBACTAM 3.375 GM VIAL IVPB ONE ×3 (02:50→17:10)
[2020-02-24] MEDS: PIPERACILLIN/TAZOB 3.375 GM 3.375 GM in DEXTROSE 5%-WATER - 50 ML IVPB SCH ×3 (02:52→17:13)
[2020-02-24] MEDS: LACTATED RINGERS SOLUTION 1,000 ML/1,000 ML INFUS.BAG IV SCH ×3 (02:53→18:20)
[2020-02-24] MEDS: FENTANYL NS IVPB 500 MCG/100 ML BAG IVPB SCH ×4 (02:54→22:25)
[2020-02-24] MEDS ORDERED: INSULIN (NOVOLOG) ASPART 100 UNITS/ML 10ML VIAL ONE (06:39)
[2020-02-24 06:44] LABS: BASO % 0.4 % (0-2.0); HEMATOCRIT 32.5 % (32.4-45.2); HEMOGLOBIN 10.7 GM/dL (10.7-15.3); LYMPH % 3.6 % (8-40); MCH 29.6 pg (25.7-33.7); MEAN CELL VOLUME 89.7 fl (80-96); MEAN PLT VOLUME 10.9 fl (7.5-11.1); MONO % 4.2 % (3.8-10.2); NEUT % 91.8 % (42.8-82.8); PLATELET COUNT 185 K/MM3 (134-434); RBC 3.63 M/mm3 (3.60-5.2); RDW 13.7 % (11.6-15.6); WHITE BLOOD COUNT 8.9 K/mm3 (4.0-10.0)
[2020-02-24 07:04] LABS: POTASSIUM 4.6 mmol/L (3.5-5.1)
[2020-02-24 07:10] LABS: ALBUMIN 1.8 g/dl (3.4-5.0); BLOOD UREA NITROGEN 34.6 mg/dL (7-18); CALCIUM 8.5 mg/dL (8.5-10.1); MAGNESIUM 1.9 mg/dL (1.8-2.4)
[2020-02-24 07:12] LABS: CREATININE 0.5 mg/dL (0.55-1.3); PHOSPHOROUS 3.4 mg/dL (2.5-4.9)
[2020-02-24 07:14] LABS: BILIRUBIN,TOTAL 0.5 mg/dL (0.2-1)
[2020-02-24] MEDS ORDERED: PT OWN MED DRAWER 7, Y5N ONE ×6 (08:57→22:04)
[2020-02-24] MEDS: ENOXAPARIN NA (PORCINE) 80 MG/0.8 ML DISP.SYRIN SQ SCH ×2 (09:04→22:23)
[2020-02-24] MEDS: FAMOTIDINE 20 MG/50 ML IVPB 20 MG/50 ML MG IVPB SCH (09:04)
[2020-02-24] MEDS: DEXAMETHASONE SOD PHOSPHATE 4 MG/1 ML VIAL IVPUSH SCH (09:05)
[2020-02-24] MEDS: DOCUSATE NA 100 MG/10 ML UNIT-DOSE CUPS NGT SCH (09:05)
[2020-02-24] MEDS: CHOLECALCIFEROL (VIT D3) 1,000 UNIT (25 MCG) TABLET NR SCH (09:05)
[2020-02-24] MEDS: AMINO ACIDS/PROTEIN HYDROLYS 30 ML LIQUID.PKT NGT SCH (09:06)
[2020-02-24] MEDS: ZINC SULFATE 220 MG CAPSULE (FP) NGT SCH (09:37)
[2020-02-24] MEDS: ASCORBIC ACID 500 MG TABLET (FP) NGT SCH ×2 (09:38→22:25)
[2020-02-24] MEDS: POLYETHYLENE GLYCOL 3350 119 GM BTL NGT SCH (09:55)
[2020-02-24] MEDS ORDERED: FUROSEMIDE 40 MG/4 ML INJECTABLE VIAL IVPUSH ONE (13:30)
[2020-02-24] MEDS ORDERED: ROCURONIUM BROMIDE 50 MG/5 ML VIAL IV ONE (13:56)
[2020-02-24] MEDS ORDERED: RAPID SEQUENCE INTUBATION KIT NR ONE (14:00)
[2020-02-24] MEDS ORDERED: FENTANYL NS IVPB 500 MCG/100 ML BAG IVPB ONE (14:47)
[2020-02-24] MEDS ORDERED: ROCURONIUM BROMIDE IVPB SCH (15:15)
[2020-02-24] MEDS: VECURONIUM BROMIDE 100 MG/100 ML BAG IVPB SCH (15:58)
[2020-02-24] MEDS: MIDODRINE HCL 2.5 MG TABLET NGT SCH ×2 (16:34→18:19)
[2020-02-24] MEDS: MIDAZOLAM 100 MG/100 ML MG IVPB SCH (22:23)
[2020-02-24] MEDS: SENNOSIDES 8.8 MG/5 ML BULK BOTTLE NGT SCH (22:24)
[2020-02-25] MEDS ORDERED: DEXTROSE 5%-WATER - 50 ML IVPB ONE ×3 (01:44→17:03)
[2020-02-25] MEDS ORDERED: PIPERACILLIN/TAZOBACTAM 3.375 GM VIAL IVPB ONE ×3 (01:44→17:03)
[2020-02-25] MEDS: PIPERACILLIN/TAZOB 3.375 GM 3.375 GM in DEXTROSE 5%-WATER - 50 ML IVPB SCH ×3 (02:26→17:12)
[2020-02-25] MEDS: FENTANYL NS IVPB 500 MCG/100 ML BAG IVPB SCH ×5 (04:32→20:35)
[2020-02-25 06:28] LABS: ARTERIAL BLD GAS O2 SATURATION 97.4 mmHg (95-98); ARTERIAL BLOOD GAS BASE EXCESS 6.1 mmol/L (-2-2); ARTERIAL BLOOD GAS PO2 98.8 mmHg (80-100); ARTERIAL BLOOD GAS pH 7.405 (7.350-7.450)
[2020-02-25 06:41] LABS: ALLENS TEST POSITIVE
[2020-02-25 06:42] LABS: VENT MODE A/C; VENT RATE 20
[2020-02-25] MEDS: VECURONIUM BROMIDE 100 MG/100 ML BAG IVPB SCH ×2 (07:07→16:57)
[2020-02-25 07:24] LABS: MCH 29.9 pg (25.7-33.7); MCHC 33.3 g/dl (32.0-36.0); MEAN CELL VOLUME 89.8 fl (80-96); MEAN PLT VOLUME 11.6 fl (7.5-11.1); PLATELET COUNT 153 K/MM3 (134-434); RBC 3.68 M/mm3 (3.60-5.2); RDW 13.7 % (11.6-15.6); WHITE BLOOD COUNT 7.6 K/mm3 (4.0-10.0)
[2020-02-25 07:38] LABS: POTASSIUM 4.1 mmol/L (3.5-5.1)
[2020-02-25 07:45] LABS: ALBUMIN 1.8 g/dl (3.4-5.0); CALCIUM 8.8 mg/dL (8.5-10.1)
[2020-02-25 07:46] LABS: BLOOD UREA NITROGEN 37.5 mg/dL (7-18); MAGNESIUM 1.8 mg/dL (1.8-2.4)
[2020-02-25 07:49] LABS: BILIRUBIN,DIRECT 0.2 mg/dL (0.0-0.2); CREATININE 0.5 mg/dL (0.55-1.3); PHOSPHOROUS 2.8 mg/dL (2.5-4.9)
[2020-02-25 07:50] LABS: BILIRUBIN,TOTAL 0.6 mg/dL (0.2-1); TOT PROT 4.9 g/dl (6.4-8.2)
[2020-02-25] MEDS: AMINO ACIDS/PROTEIN HYDROLYS 30 ML LIQUID.PKT NGT SCH (08:48)
[2020-02-25] MEDS: FAMOTIDINE 20 MG/50 ML IVPB 20 MG/50 ML MG IVPB SCH (09:02)
[2020-02-25] MEDS: CHOLECALCIFEROL (VIT D3) 1,000 UNIT (25 MCG) TABLET NR SCH (09:03)
[2020-02-25] MEDS: ENOXAPARIN NA (PORCINE) 80 MG/0.8 ML DISP.SYRIN SQ SCH ×2 (09:03→22:13)
[2020-02-25] MEDS: DOCUSATE NA 100 MG/10 ML UNIT-DOSE CUPS NGT SCH (09:03)
[2020-02-25] MEDS: DEXAMETHASONE SOD PHOSPHATE 4 MG/1 ML VIAL IVPUSH SCH (09:03)
[2020-02-25] MEDS: POLYETHYLENE GLYCOL 3350 119 GM BTL NGT SCH (09:03)
[2020-02-25] MEDS: ASCORBIC ACID 500 MG TABLET (FP) NGT SCH ×2 (09:03→22:13)
[2020-02-25] MEDS: ZINC SULFATE 220 MG CAPSULE (FP) NGT SCH (09:03)
[2020-02-25] MEDS: MIDODRINE HCL 2.5 MG TABLET NGT SCH ×3 (09:04→17:12)
[2020-02-25 12:49] LABS: URINE APPEARANCE CLEAR; URINE BILIRUBIN NEGATIVE (NEGATIVE); URINE COLOR YELLOW; URINE GLUCOSE (UA) NEGATIVE (NEGATIVE); URINE KETONE NEGATIVE (NEGATIVE); URINE LEUK ESTERASE NEGATIVE (NEGATIVE); URINE NITRITE NEGATIVE (NEGATIVE); URINE PROTEIN NEGATIVE (NEGATIVE)
[2020-02-25] MEDS: NOREPINEPHRINE BITARTRATE 16,000 MCG in SODIUM CHLORIDE 484 ML IV SCH (13:00)
[2020-02-25] MEDS ORDERED: NOREPINEPHRINE D5W PREMIX 16,000 MCG/500 ML BAG IVPB ONE (13:11)
[2020-02-25] MEDS: MIDAZOLAM 100 MG/100 ML MG IVPB SCH (14:45)
[2020-02-25] MEDS ORDERED: PT OWN MED DRAWER 7, Y5N ONE ×2 (17:03→22:11)
[2020-02-25] MEDS: LACTATED RINGERS SOLUTION 1,000 ML/1,000 ML INFUS.BAG IV SCH (18:15)
[2020-02-25] MEDS: SENNOSIDES 8.8 MG/5 ML BULK BOTTLE NGT SCH (22:13)
[2020-02-26] MEDS: FENTANYL NS IVPB 500 MCG/100 ML BAG IVPB SCH ×3 (02:14→15:45)
[2020-02-26] MEDS: PIPERACILLIN/TAZOB 3.375 GM 3.375 GM in DEXTROSE 5%-WATER - 50 ML IVPB SCH ×4 (03:00→18:05)
[2020-02-26] MEDS ORDERED: DEXTROSE 5%-WATER - 50 ML IVPB ONE ×3 (06:28→18:04)
[2020-02-26] MEDS ORDERED: PIPERACILLIN/TAZOBACTAM 3.375 GM VIAL IVPB ONE ×3 (06:28→18:04)
[2020-02-26] MEDS ORDERED: MIDAZOLAM 100 MG/100 ML MG IVPB ONE ×2 (06:28→22:51)
[2020-02-26] MEDS: MIDAZOLAM 100 MG/100 ML MG IVPB SCH (06:36)
[2020-02-26] MEDS: LACTATED RINGERS SOLUTION 1,000 ML/1,000 ML INFUS.BAG IV SCH (06:37)
[2020-02-26 06:47] LABS: BASO % 0.4 % (0-2.0); EOS % 0.4 % (0-4.5); HEMATOCRIT 33.3 % (32.4-45.2); HEMOGLOBIN 10.9 GM/dL (10.7-15.3); LYMPH % 8.7 % (8-40); MCH 29.4 pg (25.7-33.7); MCHC 32.7 g/dl (32.0-36.0); MEAN PLT VOLUME 11.1 fl (7.5-11.1); MONO % 6.2 % (3.8-10.2); NEUT % 84.3 % (42.8-82.8); PLATELET COUNT 158 K/MM3 (134-434); RDW 13.3 % (11.6-15.6); WHITE BLOOD COUNT 8.1 K/mm3 (4.0-10.0)
[2020-02-26 07:04] LABS: POTASSIUM 4.3 mmol/L (3.5-5.1)
[2020-02-26 07:06] LABS: ALBUMIN 1.7 g/dl (3.4-5.0); BLOOD UREA NITROGEN 34.5 mg/dL (7-18); CALCIUM 8.6 mg/dL (8.5-10.1); MAGNESIUM 2.1 mg/dL (1.8-2.4)
[2020-02-26 07:10] LABS: CREATININE 0.4 mg/dL (0.55-1.3); PHOSPHOROUS 2.8 mg/dL (2.5-4.9)
[2020-02-26 07:11] LABS: BILIRUBIN,TOTAL 0.4 mg/dL (0.2-1); TOT PROT 4.8 g/dl (6.4-8.2)
[2020-02-26] MEDS: VECURONIUM BROMIDE 100 MG/100 ML BAG IVPB SCH ×2 (08:08→15:39)
[2020-02-26] MEDS: AMINO ACIDS/PROTEIN HYDROLYS 30 ML LIQUID.PKT NGT SCH (08:10)
[2020-02-26 08:53] LABS: ALLENS TEST POSITIVE; ARTERIAL BLD GAS O2 SATURATION 92.4 mmHg (95-98); ARTERIAL BLOOD GAS BASE EXCESS 5.5 mmol/L (-2-2); ARTERIAL BLOOD GAS PO2 63.9 mmHg (80-100); ARTERIAL BLOOD GAS pH 7.412 (7.350-7.450)
[2020-02-26 08:54] LABS: VENT MODE AC; VENT RATE 20
[2020-02-26] MEDS: DEXAMETHASONE SOD PHOSPHATE 4 MG/1 ML VIAL IVPUSH SCH (10:09)
[2020-02-26] MEDS: DOCUSATE NA 100 MG/10 ML UNIT-DOSE CUPS NGT SCH (10:09)
[2020-02-26] MEDS: ASCORBIC ACID 500 MG TABLET (FP) NGT SCH ×2 (10:10→22:00)
[2020-02-26] MEDS: ZINC SULFATE 220 MG CAPSULE (FP) NGT SCH (10:15)
[2020-02-26] MEDS: FAMOTIDINE 20 MG/50 ML IVPB 20 MG/50 ML MG IVPB SCH (10:15)
[2020-02-26] MEDS: POLYETHYLENE GLYCOL 3350 119 GM BTL NGT SCH (10:17)
[2020-02-26] MEDS: ENOXAPARIN NA (PORCINE) 80 MG/0.8 ML DISP.SYRIN SQ SCH ×2 (10:17→21:59)
[2020-02-26] MEDS: CHOLECALCIFEROL (VIT D3) 1,000 UNIT (25 MCG) TABLET NR SCH (10:18)
[2020-02-26] MEDS: MIDODRINE HCL 2.5 MG TABLET NGT SCH ×3 (10:21→18:06)
[2020-02-26 20:20] LABS: HIV INTERPRETATION NEGATIVE (NEGATIVE)
[2020-02-26] MEDS: SENNOSIDES 8.8 MG/5 ML BULK BOTTLE NGT SCH (22:00)
[2020-02-27] MEDS: FENTANYL NS IVPB 500 MCG/100 ML BAG IVPB SCH ×3 (01:20→22:28)
[2020-02-27] MEDS ORDERED: DEXTROSE 5%-WATER - 50 ML IVPB ONE ×3 (01:31→16:55)
[2020-02-27] MEDS ORDERED: PIPERACILLIN/TAZOBACTAM 3.375 GM VIAL IVPB ONE ×3 (01:31→16:55)
[2020-02-27] MEDS: PIPERACILLIN/TAZOB 3.375 GM 3.375 GM in DEXTROSE 5%-WATER - 50 ML IVPB SCH ×3 (01:50→17:01)
[2020-02-27] MEDS: MIDAZOLAM 100 MG/100 ML MG IVPB SCH ×3 (02:35→22:28)
[2020-02-27] MEDS: VECURONIUM BROMIDE 100 MG/100 ML BAG IVPB SCH ×2 (05:36→22:34)
[2020-02-27] MEDS: LACTATED RINGERS SOLUTION 1,000 ML/1,000 ML INFUS.BAG IV SCH ×2 (07:39→17:01)
[2020-02-27] MEDS ORDERED: PT OWN MED DRAWER 7, Y5N ONE (08:54)
[2020-02-27] MEDS: DOCUSATE NA 100 MG/10 ML UNIT-DOSE CUPS NGT SCH (08:59)
[2020-02-27] MEDS: AMINO ACIDS/PROTEIN HYDROLYS 30 ML LIQUID.PKT NGT SCH (08:59)
[2020-02-27] MEDS: ENOXAPARIN NA (PORCINE) 80 MG/0.8 ML DISP.SYRIN SQ SCH ×2 (09:01→22:27)
[2020-02-27] MEDS: POLYETHYLENE GLYCOL 3350 119 GM BTL NGT SCH (09:01)
[2020-02-27] MEDS: DEXAMETHASONE SOD PHOSPHATE 4 MG/1 ML VIAL IVPUSH SCH (09:01)
[2020-02-27] MEDS: ZINC SULFATE 220 MG CAPSULE (FP) NGT SCH (09:02)
[2020-02-27] MEDS: FAMOTIDINE 20 MG/50 ML IVPB 20 MG/50 ML MG IVPB SCH (09:02)
[2020-02-27] MEDS: CHOLECALCIFEROL (VIT D3) 1,000 UNIT (25 MCG) TABLET NR SCH (09:03)
[2020-02-27] MEDS: MIDODRINE HCL 2.5 MG TABLET NGT SCH ×3 (09:03→17:00)
[2020-02-27] MEDS: ASCORBIC ACID 500 MG TABLET (FP) NGT SCH ×2 (09:03→22:28)
[2020-02-27 09:08] LABS: BASO % 0.6 % (0-2.0); EOS % 0.6 % (0-4.5); HEMATOCRIT 30.6 % (32.4-45.2); LYMPH % 7.1 % (8-40); MCH 29.6 pg (25.7-33.7); MCHC 32.9 g/dl (32.0-36.0); MEAN CELL VOLUME 89.9 fl (80-96); MEAN PLT VOLUME 11.1 fl (7.5-11.1); MONO % 6.3 % (3.8-10.2); NEUT % 85.4 % (42.8-82.8); PLATELET COUNT 159 K/MM3 (134-434); RDW 13.6 % (11.6-15.6); WHITE BLOOD COUNT 8.4 K/mm3 (4.0-10.0)
[2020-02-27 09:28] LABS: POTASSIUM 4.2 mmol/L (3.5-5.1)
[2020-02-27 09:42] LABS: BILIRUBIN,TOTAL 0.6 mg/dL (0.2-1); TOT PROT 4.6 g/dl (6.4-8.2)
[2020-02-27 10:00] LABS: ALBUMIN 1.6 g/dl (3.4-5.0); BLOOD UREA NITROGEN 40.1 mg/dL (7-18); CALCIUM 8.4 mg/dL (8.5-10.1); MAGNESIUM 2.1 mg/dL (1.8-2.4)
[2020-02-27 10:03] LABS: CREATININE 0.5 mg/dL (0.55-1.3)
[2020-02-27 10:04] LABS: PHOSPHOROUS 3.2 mg/dL (2.5-4.9)
[2020-02-27] MEDS ORDERED: FENTANYL IVPB 500 MCG/100 ML BAG IVPB ONE (15:37)
[2020-02-27] MEDS ORDERED: INSULIN (LEVEMIR) 100 UNITS/ML UNITS SQ ONE (22:23)
[2020-02-27] MEDS: SENNOSIDES 8.8 MG/5 ML BULK BOTTLE NGT SCH (22:49)
[2020-02-28] MEDS: LACTATED RINGERS SOLUTION 1,000 ML/1,000 ML INFUS.BAG IV SCH ×2 (01:02→20:57)
[2020-02-28] MEDS ORDERED: PIPERACILLIN/TAZOBACTAM 3.375 GM VIAL IVPB ONE ×3 (03:02→16:37)
[2020-02-28] MEDS ORDERED: DEXTROSE 5%-WATER - 50 ML IVPB ONE ×3 (03:02→16:37)
[2020-02-28] MEDS: PIPERACILLIN/TAZOB 3.375 GM 3.375 GM in DEXTROSE 5%-WATER - 50 ML IVPB SCH ×3 (03:06→17:45)
[2020-02-28] MEDS: MIDAZOLAM 100 MG/100 ML MG IVPB SCH ×2 (03:06→14:34)
[2020-02-28] MEDS: FENTANYL NS IVPB 500 MCG/100 ML BAG IVPB SCH ×2 (05:45→21:00)
[2020-02-28 06:03] LABS: ALLENS TEST POSITIVE; ARTERIAL BLD GAS O2 SATURATION 85.4 mmHg (95-98); ARTERIAL BLOOD GAS BASE EXCESS 5.5 mmol/L (-2-2); ARTERIAL BLOOD GAS PO2 55.2 mmHg (80-100); ARTERIAL BLOOD GAS pH 7.324 (7.350-7.450)
[2020-02-28 06:05] LABS: VENT MODE A/C; VENT RATE 20
[2020-02-28 07:17] LABS: BASO % 0.3 % (0-2.0); EOS % 0.8 % (0-4.5); HEMATOCRIT 27.9 % (32.4-45.2); HEMOGLOBIN 9.2 GM/dL (10.7-15.3); LYMPH % 6.6 % (8-40); MCH 29.8 pg (25.7-33.7); MCHC 33.1 g/dl (32.0-36.0); MEAN CELL VOLUME 90.1 fl (80-96); MEAN PLT VOLUME 10.7 fl (7.5-11.1); MONO % 6.6 % (3.8-10.2); NEUT % 85.7 % (42.8-82.8); PLATELET COUNT 132 K/MM3 (134-434); RBC 3.09 M/mm3 (3.60-5.2); RDW 13.6 % (11.6-15.6); WHITE BLOOD COUNT 7.8 K/mm3 (4.0-10.0)
[2020-02-28 07:37] LABS: POTASSIUM 4.4 mmol/L (3.5-5.1)
[2020-02-28 07:45] LABS: ALBUMIN 1.6 g/dl (3.4-5.0); BLOOD UREA NITROGEN 35.8 mg/dL (7-18); CALCIUM 8.4 mg/dL (8.5-10.1); MAGNESIUM 2.1 mg/dL (1.8-2.4)
[2020-02-28 07:48] LABS: CREATININE 0.5 mg/dL (0.55-1.3); PHOSPHOROUS 2.8 mg/dL (2.5-4.9)
[2020-02-28 07:50] LABS: BILIRUBIN,TOTAL 0.7 mg/dL (0.2-1); TOT PROT 4.4 g/dl (6.4-8.2)
[2020-02-28] MEDS: AMINO ACIDS/PROTEIN HYDROLYS 30 ML LIQUID.PKT NGT SCH (08:59)
[2020-02-28] MEDS: DOCUSATE NA 100 MG/10 ML UNIT-DOSE CUPS NGT SCH (08:59)
[2020-02-28] MEDS: DEXAMETHASONE SOD PHOSPHATE 4 MG/1 ML VIAL IVPUSH SCH (08:59)
[2020-02-28] MEDS: FAMOTIDINE 20 MG/50 ML IVPB 20 MG/50 ML MG IVPB SCH (09:00)
[2020-02-28] MEDS: ENOXAPARIN NA (PORCINE) 80 MG/0.8 ML DISP.SYRIN SQ SCH ×2 (09:00→22:53)
[2020-02-28] MEDS: ASCORBIC ACID 500 MG TABLET (FP) NGT SCH ×2 (09:00→22:55)
[2020-02-28] MEDS: CHOLECALCIFEROL (VIT D3) 1,000 UNIT (25 MCG) TABLET NR SCH (09:00)
[2020-02-28] MEDS: ZINC SULFATE 220 MG CAPSULE (FP) NGT SCH (09:00)
[2020-02-28] MEDS ORDERED: PT OWN MED DRAWER 7, Y5N ONE ×2 (09:04→13:37)
[2020-02-28] MEDS: MIDODRINE HCL 2.5 MG TABLET NGT SCH ×3 (09:07→17:45)
[2020-02-28] MEDS: POLYETHYLENE GLYCOL 3350 119 GM BTL NGT SCH (11:51)
[2020-02-28] MEDS ORDERED: BENZOIN/ALOE VERA/STORAX/TOLU 58 ML BOTTLE ONE (12:18)
[2020-02-28] MEDS: VECURONIUM BROMIDE 100 MG/100 ML BAG IVPB SCH (14:35)
[2020-02-28] MEDS ORDERED: REMDESIVIR 100 MG in SODIUM CHLORIDE 230 ML IVPB SCH (15:59)
[2020-02-28] MEDS ORDERED: FENTANYL NS IVPB 500 MCG/100 ML BAG IVPB ONE (16:37)
[2020-02-28 22:15] LABS: HEP B CORE AB, TOT Positive (Negative)
[2020-02-28] MEDS: SENNOSIDES 8.8 MG/5 ML BULK BOTTLE NGT SCH (22:55)
[2020-02-29] MEDS: VECURONIUM BROMIDE 100 MG/100 ML BAG IVPB SCH (00:25)
[2020-02-29] MEDS ORDERED: PIPERACILLIN/TAZOBACTAM 3.375 GM VIAL IVPB ONE ×3 (01:01→17:31)
[2020-02-29] MEDS ORDERED: DEXTROSE 5%-WATER - 50 ML IVPB ONE ×3 (01:01→17:31)
[2020-02-29] MEDS: PIPERACILLIN/TAZOB 3.375 GM 3.375 GM in DEXTROSE 5%-WATER - 50 ML IVPB SCH ×3 (01:23→17:32)
[2020-02-29 07:00] LABS: BASO % 1.1 % (0-2.0); EOS % 1.5 % (0-4.5); HEMATOCRIT 27.4 % (32.4-45.2); LYMPH % 7.7 % (8-40); MCH 29.9 pg (25.7-33.7); MCHC 32.9 g/dl (32.0-36.0); MEAN CELL VOLUME 90.8 fl (80-96); MEAN PLT VOLUME 10.6 fl (7.5-11.1); NEUT % 82.7 % (42.8-82.8); PLATELET COUNT 135 K/MM3 (134-434); RBC 3.02 M/mm3 (3.60-5.2); RDW 14.4 % (11.6-15.6); WHITE BLOOD COUNT 8.4 K/mm3 (4.0-10.0)
[2020-02-29 07:18] LABS: POTASSIUM 4.2 mmol/L (3.5-5.1)
[2020-02-29 07:26] LABS: CALCIUM 8.5 mg/dL (8.5-10.1)
[2020-02-29 07:28] LABS: ALBUMIN 1.6 g/dl (3.4-5.0); BLOOD UREA NITROGEN 36.4 mg/dL (7-18); MAGNESIUM 2.1 mg/dL (1.8-2.4)
[2020-02-29 07:30] LABS: CREATININE 0.4 mg/dL (0.55-1.3); PHOSPHOROUS 2.7 mg/dL (2.5-4.9)
[2020-02-29 07:32] LABS: BILIRUBIN,TOTAL 0.8 mg/dL (0.2-1); TOT PROT 4.7 g/dl (6.4-8.2)
[2020-02-29] MEDS: MIDAZOLAM 100 MG/100 ML MG IVPB SCH (08:15)
[2020-02-29] MEDS: FAMOTIDINE 20 MG/50 ML IVPB 20 MG/50 ML MG IVPB SCH (09:25)
[2020-02-29] MEDS: DEXAMETHASONE SOD PHOSPHATE 4 MG/1 ML VIAL IVPUSH SCH (09:27)
[2020-02-29] MEDS: DOCUSATE NA 100 MG/10 ML UNIT-DOSE CUPS NGT SCH (09:28)
[2020-02-29] MEDS: ZINC SULFATE 220 MG CAPSULE (FP) NGT SCH (09:28)
[2020-02-29] MEDS: CHOLECALCIFEROL (VIT D3) 1,000 UNIT (25 MCG) TABLET NR SCH (09:29)
[2020-02-29] MEDS: ASCORBIC ACID 500 MG TABLET (FP) NGT SCH ×2 (09:29→21:28)
[2020-02-29] MEDS: AMINO ACIDS/PROTEIN HYDROLYS 30 ML LIQUID.PKT NGT SCH (09:29)
[2020-02-29] MEDS: ENOXAPARIN NA (PORCINE) 80 MG/0.8 ML DISP.SYRIN SQ SCH ×2 (09:30→21:27)
[2020-02-29] MEDS ORDERED: PT OWN MED DRAWER 7, Y5N ONE ×4 (09:32→21:24)
[2020-02-29] MEDS: MIDODRINE HCL 2.5 MG TABLET NGT SCH ×3 (09:33→17:32)
[2020-02-29 10:19] LABS: ANISOCYTOSIS 1+; MACROCYTOSIS 0; PLATELET ESTIMATE DECREASED
[2020-02-29] MEDS: POLYETHYLENE GLYCOL 3350 119 GM BTL NGT SCH (13:19)
[2020-02-29] MEDS: FENTANYL NS IVPB 500 MCG/100 ML BAG IVPB SCH (20:00)
[2020-02-29] MEDS: SENNOSIDES 8.8 MG/5 ML BULK BOTTLE NGT SCH (21:27)
[2020-03-01] MEDS: PIPERACILLIN/TAZOB 3.375 GM 3.375 GM in DEXTROSE 5%-WATER - 50 ML IVPB SCH ×2 (03:00→09:56)
[2020-03-01] MEDS ORDERED: DEXTROSE 5%-WATER - 50 ML IVPB ONE ×2 (03:23→08:57)
[2020-03-01] MEDS ORDERED: PIPERACILLIN/TAZOBACTAM 3.375 GM VIAL IVPB ONE ×2 (03:23→08:57)
[2020-03-01] MEDS: LACTATED RINGERS SOLUTION 1,000 ML/1,000 ML INFUS.BAG IV SCH ×2 (03:30→17:40)
[2020-03-01] MEDS: VECURONIUM BROMIDE 100 MG/100 ML BAG IVPB SCH ×2 (03:30→17:39)
[2020-03-01 07:23] LABS: BASO % 0.9 % (0-2.0); EOS % 1.5 % (0-4.5); HEMATOCRIT 27.9 % (32.4-45.2); HEMOGLOBIN 8.9 GM/dL (10.7-15.3); MCH 29.6 pg (25.7-33.7); MCHC 31.9 g/dl (32.0-36.0); MEAN CELL VOLUME 92.9 fl (80-96); MEAN PLT VOLUME 10.8 fl (7.5-11.1); MONO % 9.1 % (3.8-10.2); NEUT % 82.5 % (42.8-82.8); PLATELET COUNT 142 K/MM3 (134-434); RDW 14.3 % (11.6-15.6); WHITE BLOOD COUNT 11.7 K/mm3 (4.0-10.0)
[2020-03-01 07:41] LABS: POTASSIUM 4.9 mmol/L (3.5-5.1)
[2020-03-01 07:45] LABS: CALCIUM 8.7 mg/dL (8.5-10.1)
[2020-03-01 07:47] LABS: ALBUMIN 1.6 g/dl (3.4-5.0); MAGNESIUM 2.4 mg/dL (1.8-2.4)
[2020-03-01 07:49] LABS: CREATININE 0.5 mg/dL (0.55-1.3); PHOSPHOROUS 3.3 mg/dL (2.5-4.9)
[2020-03-01 07:50] LABS: BILIRUBIN,TOTAL 0.3 mg/dL (0.2-1); TOT PROT 4.8 g/dl (6.4-8.2)
[2020-03-01] MEDS: AMINO ACIDS/PROTEIN HYDROLYS 30 ML LIQUID.PKT NGT SCH (09:01)
[2020-03-01] MEDS: FAMOTIDINE 20 MG/50 ML IVPB 20 MG/50 ML MG IVPB SCH (09:56)
[2020-03-01] MEDS: POLYETHYLENE GLYCOL 3350 119 GM BTL NGT SCH (09:57)
[2020-03-01] MEDS: DEXAMETHASONE SOD PHOSPHATE 4 MG/1 ML VIAL IVPUSH SCH (09:57)
[2020-03-01] MEDS: DOCUSATE NA 100 MG/10 ML UNIT-DOSE CUPS NGT SCH (09:57)
[2020-03-01] MEDS: CHOLECALCIFEROL (VIT D3) 1,000 UNIT (25 MCG) TABLET NR SCH (09:58)
[2020-03-01] MEDS: ASCORBIC ACID 500 MG TABLET (FP) NGT SCH ×2 (09:58→21:57)
[2020-03-01] MEDS: ZINC SULFATE 220 MG CAPSULE (FP) NGT SCH (09:58)
[2020-03-01] MEDS: MIDODRINE HCL 2.5 MG TABLET NGT SCH ×3 (10:00→17:44)
[2020-03-01 10:16] LABS: ANISOCYTOSIS 2+; MACROCYTOSIS 0; PLATELET ESTIMATE DECREASED
[2020-03-01] MEDS: MIDAZOLAM 100 MG/100 ML MG IVPB SCH (14:20)
[2020-03-01] MEDS: FENTANYL NS IVPB 500 MCG/100 ML BAG IVPB SCH (17:38)
[2020-03-01] MEDS: SENNOSIDES 8.8 MG/5 ML BULK BOTTLE NGT SCH (21:57)
[2020-03-02 07:36] LABS: BASO % 0.4 % (0-2.0); EOS % 1.9 % (0-4.5); HEMATOCRIT 26.4 % (32.4-45.2); HEMOGLOBIN 8.4 GM/dL (10.7-15.3); LYMPH % 5.9 % (8-40); MCH 29.9 pg (25.7-33.7); MCHC 31.8 g/dl (32.0-36.0); MEAN CELL VOLUME 94.1 fl (80-96); MEAN PLT VOLUME 10.8 fl (7.5-11.1); MONO % 6.9 % (3.8-10.2); NEUT % 84.9 % (42.8-82.8); PLATELET COUNT 129 K/MM3 (134-434); RDW 14.6 % (11.6-15.6); WHITE BLOOD COUNT 10.5 K/mm3 (4.0-10.0)
[2020-03-02 07:47] LABS: POTASSIUM 5.4 mmol/L (3.5-5.1)
[2020-03-02 07:57] LABS: CALCIUM 8.7 mg/dL (8.5-10.1)
[2020-03-02 07:58] LABS: ALBUMIN 1.6 g/dl (3.4-5.0); BLOOD UREA NITROGEN 64.3 mg/dL (7-18)
[2020-03-02 08:00] LABS: MAGNESIUM 2.3 mg/dL (1.8-2.4)
[2020-03-02 08:01] LABS: CREATININE 0.5 mg/dL (0.55-1.3); PHOSPHOROUS 3.1 mg/dL (2.5-4.9)
[2020-03-02 08:03] LABS: BILIRUBIN,TOTAL 0.3 mg/dL (0.2-1); TOT PROT 4.7 g/dl (6.4-8.2)
[2020-03-02] MEDS: AMINO ACIDS/PROTEIN HYDROLYS 30 ML LIQUID.PKT NGT SCH (08:37)
[2020-03-02] MEDS: MIDAZOLAM 100 MG/100 ML MG IVPB SCH ×2 (08:40→22:00)
[2020-03-02] MEDS: VECURONIUM BROMIDE 100 MG/100 ML BAG IVPB SCH (08:40)
[2020-03-02] MEDS: FENTANYL NS IVPB 500 MCG/100 ML BAG IVPB SCH ×2 (08:41→22:00)
[2020-03-02] MEDS: DOCUSATE NA 100 MG/10 ML UNIT-DOSE CUPS NGT SCH (09:31)
[2020-03-02] MEDS: DEXAMETHASONE SOD PHOSPHATE 4 MG/1 ML VIAL IVPUSH SCH (09:31)
[2020-03-02] MEDS: ENOXAPARIN NA (PORCINE) 80 MG/0.8 ML DISP.SYRIN SQ SCH ×2 (09:32→22:00)
[2020-03-02] MEDS: MIDODRINE HCL 2.5 MG TABLET NGT SCH ×3 (09:33→17:03)
[2020-03-02] MEDS: ZINC SULFATE 220 MG CAPSULE (FP) NGT SCH (09:33)
[2020-03-02] MEDS: POLYETHYLENE GLYCOL 3350 119 GM BTL NGT SCH (09:33)
[2020-03-02] MEDS: CHOLECALCIFEROL (VIT D3) 1,000 UNIT (25 MCG) TABLET NR SCH (09:34)
[2020-03-02] MEDS: ASCORBIC ACID 500 MG TABLET (FP) NGT SCH ×2 (09:34→21:57)
[2020-03-02] MEDS: FAMOTIDINE 20 MG/50 ML IVPB 20 MG/50 ML MG IVPB SCH (09:35)
[2020-03-02 11:11] LABS: ANISOCYTOSIS 0; MACROCYTOSIS 0; PLATELET ESTIMATE NORMAL
[2020-03-02] MEDS: SENNOSIDES 8.8 MG/5 ML BULK BOTTLE NGT SCH (21:57)
[2020-03-02] MEDS ORDERED: PT OWN MED DRAWER 7, Y5N ONE (21:59)
[2020-03-03] MEDS: MIDAZOLAM 100 MG/100 ML MG IVPB SCH ×2 (05:00→10:45)
[2020-03-03] MEDS: FENTANYL NS IVPB 500 MCG/100 ML BAG IVPB SCH ×4 (07:00→19:52)
[2020-03-03] MEDS ORDERED: PT OWN MED DRAWER 7, Y5N ONE ×2 (10:19→17:19)
[2020-03-03] MEDS: FAMOTIDINE 20 MG/50 ML IVPB 20 MG/50 ML MG IVPB SCH (10:44)
[2020-03-03] MEDS: ENOXAPARIN NA (PORCINE) 80 MG/0.8 ML DISP.SYRIN SQ SCH ×2 (10:45→21:27)
[2020-03-03] MEDS: AMINO ACIDS/PROTEIN HYDROLYS 30 ML LIQUID.PKT NGT SCH (10:45)
[2020-03-03] MEDS: DOCUSATE NA 100 MG/10 ML UNIT-DOSE CUPS NGT SCH (10:45)
[2020-03-03] MEDS: ASCORBIC ACID 500 MG TABLET (FP) NGT SCH ×2 (10:46→21:27)
[2020-03-03] MEDS: DEXAMETHASONE SOD PHOSPHATE 4 MG/1 ML VIAL IVPUSH SCH (10:46)
[2020-03-03] MEDS: CHOLECALCIFEROL (VIT D3) 1,000 UNIT (25 MCG) TABLET NR SCH (10:46)
[2020-03-03] MEDS: MIDODRINE HCL 2.5 MG TABLET NGT SCH ×3 (10:46→17:20)
[2020-03-03] MEDS: POLYETHYLENE GLYCOL 3350 119 GM BTL NGT SCH (10:47)
[2020-03-03] MEDS: ZINC SULFATE 220 MG CAPSULE (FP) NGT SCH (10:49)
[2020-03-03 14:32] VITALS: BMI 38.7
[2020-03-03] MEDS: VECURONIUM BROMIDE 100 MG/100 ML BAG IVPB SCH (17:37)
[2020-03-03] MEDS: LACTATED RINGERS SOLUTION 1,000 ML/1,000 ML INFUS.BAG IV SCH ×2 (18:23→18:24)
[2020-03-03] MEDS: SENNOSIDES 8.8 MG/5 ML BULK BOTTLE NGT SCH (21:27)
[2020-03-04] MEDS: VECURONIUM BROMIDE 100 MG/100 ML BAG IVPB SCH
[2020-03-04 07:16] LABS: BASO % 1.1 % (0-2.0); EOS % 1.6 % (0-4.5); HEMATOCRIT 22.7 % (32.4-45.2); HEMOGLOBIN 7.5 GM/dL (10.7-15.3); LYMPH % 9.4 % (8-40); MCH 30.6 pg (25.7-33.7); MCHC 33.1 g/dl (32.0-36.0); MEAN CELL VOLUME 92.5 fl (80-96); MEAN PLT VOLUME 10.3 fl (7.5-11.1); MONO % 7.6 % (3.8-10.2); NEUT % 80.3 % (42.8-82.8); PLATELET COUNT 117 K/MM3 (134-434); RBC 2.46 M/mm3 (3.60-5.2); RDW 14.5 % (11.6-15.6); WHITE BLOOD COUNT 6.9 K/mm3 (4.0-10.0)
[2020-03-04 07:20] LABS: ALBUMIN 1.7 g/dl (3.4-5.0); CALCIUM 8.7 mg/dL (8.5-10.1); POTASSIUM 5.6 mmol/L (3.5-5.1)
[2020-03-04 07:21] LABS: BLOOD UREA NITROGEN 50.8 mg/dL (7-18); MAGNESIUM 2.3 mg/dL (1.8-2.4)
[2020-03-04 07:24] LABS: CREATININE 0.3 mg/dL (0.55-1.3); PHOSPHOROUS 2.4 mg/dL (2.5-4.9)
[2020-03-04 07:25] LABS: BILIRUBIN,TOTAL 0.2 mg/dL (0.2-1); TOT PROT 4.4 g/dl (6.4-8.2)
[2020-03-04] MEDS: FENTANYL NS IVPB 500 MCG/100 ML BAG IVPB SCH ×2 (08:20→21:48)
[2020-03-04] MEDS ORDERED: PT OWN MED DRAWER 7, Y5N ONE (09:16)
[2020-03-04] MEDS: SODIUM ZIRCONIUM CYCLOSILICATE (LOKELMA) 5 GM PACKET PO SCH (09:24)
[2020-03-04] MEDS: DEXAMETHASONE SOD PHOSPHATE 4 MG/1 ML VIAL IVPUSH SCH (09:26)
[2020-03-04] MEDS: ENOXAPARIN NA (PORCINE) 80 MG/0.8 ML DISP.SYRIN SQ SCH ×2 (09:28→21:48)
[2020-03-04] MEDS: FAMOTIDINE 20 MG/50 ML IVPB 20 MG/50 ML MG IVPB SCH (09:29)
[2020-03-04] MEDS: DOCUSATE NA 100 MG/10 ML UNIT-DOSE CUPS NGT SCH (09:32)
[2020-03-04] MEDS: POLYETHYLENE GLYCOL 3350 119 GM BTL NGT SCH (09:33)
[2020-03-04] MEDS: ASCORBIC ACID 500 MG TABLET (FP) NGT SCH ×2 (11:24→21:49)
[2020-03-04] MEDS: CHOLECALCIFEROL (VIT D3) 1,000 UNIT (25 MCG) TABLET NR SCH (11:24)
[2020-03-04] MEDS: ZINC SULFATE 220 MG CAPSULE (FP) NGT SCH (11:25)
[2020-03-04] MEDS: MIDODRINE HCL 2.5 MG TABLET NGT SCH ×3 (11:25→21:52)
[2020-03-04 11:56] LABS: ANISOCYTOSIS 1+; MACROCYTOSIS 1+; OVALOCYTE 1+; PLATELET ESTIMATE DECREASED
[2020-03-04] MEDS ORDERED: VECURONIUM BROMIDE 100 MG/100 ML BAG IVPB SCH (15:15)
[2020-03-04] MEDS: LACTATED RINGERS SOLUTION 1,000 ML/1,000 ML INFUS.BAG IV SCH (21:48)
[2020-03-04] MEDS: SENNOSIDES 8.8 MG/5 ML BULK BOTTLE NGT SCH (21:49)
[2020-03-04] MEDS: MIDAZOLAM 100 MG/100 ML MG IVPB SCH (21:53)
[2020-03-05 06:52] LABS: BASO % 0.6 % (0-2.0); EOS % 3.1 % (0-4.5); HEMATOCRIT 26.1 % (32.4-45.2); HEMOGLOBIN 8.5 GM/dL (10.7-15.3); LYMPH % 12.3 % (8-40); MCH 30.3 pg (25.7-33.7); MCHC 32.7 g/dl (32.0-36.0); MEAN CELL VOLUME 92.9 fl (80-96); MEAN PLT VOLUME 10.3 fl (7.5-11.1); MONO % 5.2 % (3.8-10.2); NEUT % 78.8 % (42.8-82.8); PLATELET COUNT 141 K/MM3 (134-434); RBC 2.81 M/mm3 (3.60-5.2); RDW 14.5 % (11.6-15.6)
[2020-03-05 07:09] LABS: CALCIUM 8.8 mg/dL (8.5-10.1)
[2020-03-05 07:10] LABS: ALBUMIN 1.8 g/dl (3.4-5.0)
[2020-03-05 07:12] LABS: PHOSPHOROUS 2.3 mg/dL (2.5-4.9)
[2020-03-05 07:13] LABS: CREATININE 0.2 mg/dL (0.55-1.3)
[2020-03-05 07:14] LABS: BILIRUBIN,TOTAL 0.6 mg/dL (0.2-1)
[2020-03-05 07:22] LABS: BLOOD UREA NITROGEN 32.8 mg/dL (7-18)
[2020-03-05] MEDS: DOCUSATE NA 100 MG/10 ML UNIT-DOSE CUPS NGT SCH (09:34)
[2020-03-05] MEDS: DEXAMETHASONE SOD PHOSPHATE 4 MG/1 ML VIAL IVPUSH SCH (09:36)
[2020-03-05] MEDS: SODIUM ZIRCONIUM CYCLOSILICATE (LOKELMA) 5 GM PACKET PO SCH ×2 (09:36→09:41)
[2020-03-05] MEDS: ENOXAPARIN NA (PORCINE) 80 MG/0.8 ML DISP.SYRIN SQ SCH ×2 (09:36→22:50)
[2020-03-05] MEDS: CHOLECALCIFEROL (VIT D3) 1,000 UNIT (25 MCG) TABLET NR SCH (09:37)
[2020-03-05] MEDS: ZINC SULFATE 220 MG CAPSULE (FP) NGT SCH (09:37)
[2020-03-05] MEDS: FAMOTIDINE 20 MG/50 ML IVPB 20 MG/50 ML MG IVPB SCH (09:37)
[2020-03-05] MEDS: ASCORBIC ACID 500 MG TABLET (FP) NGT SCH ×2 (09:37→22:50)
[2020-03-05] MEDS: MIDODRINE HCL 2.5 MG TABLET NGT SCH ×3 (09:37→17:18)
[2020-03-05] MEDS: POLYETHYLENE GLYCOL 3350 119 GM BTL NGT SCH (09:37)
[2020-03-05 12:30] LABS: ANISOCYTOSIS 0; MACROCYTOSIS 0; PLATELET ESTIMATE DECREASED
[2020-03-05] MEDS: LACTATED RINGERS SOLUTION 1,000 ML/1,000 ML INFUS.BAG IV SCH (15:14)
[2020-03-05] MEDS ORDERED: FENTANYL NS IVPB 500 MCG/100 ML BAG IVPB ONE (19:35)
[2020-03-05] MEDS: SENNOSIDES 8.8 MG/5 ML BULK BOTTLE NGT SCH (22:50)
[2020-03-06] MEDS ORDERED: FENTANYL IVPB 500 MCG/100 ML BAG IVPB ONE ×2 (00:08→01:03)
[2020-03-06] MEDS: MIDAZOLAM 100 MG/100 ML MG IVPB SCH (03:00)
[2020-03-06 06:18] LABS: ARTERIAL BLD GAS O2 SATURATION 91.7 mmHg (95-98); ARTERIAL BLOOD GAS BASE EXCESS 13.4 mmol/L (-2-2); ARTERIAL BLOOD GAS PO2 68.2 mmHg (80-100)
[2020-03-06 06:22] LABS: ALLENS TEST POSITIVE; VENT MODE A/C
[2020-03-06 06:23] LABS: VENT RATE 20
[2020-03-06 06:27] LABS: BASO % 0.9 % (0-2.0); EOS % 2.5 % (0-4.5); HEMOGLOBIN 7.5 GM/dL (10.7-15.3); MCH 30.4 pg (25.7-33.7); MCHC 32.6 g/dl (32.0-36.0); MEAN CELL VOLUME 93.2 fl (80-96); MEAN PLT VOLUME 9.9 fl (7.5-11.1); MONO % 5.4 % (3.8-10.2); NEUT % 81.2 % (42.8-82.8); PLATELET COUNT 159 K/MM3 (134-434); RBC 2.47 M/mm3 (3.60-5.2); RDW 14.8 % (11.6-15.6); WHITE BLOOD COUNT 9.1 K/mm3 (4.0-10.0)
[2020-03-06 07:11] LABS: POTASSIUM 4.9 mmol/L (3.5-5.1)
[2020-03-06 07:16] LABS: ALBUMIN 1.7 g/dl (3.4-5.0); BLOOD UREA NITROGEN 25.2 mg/dL (7-18); CALCIUM 9.3 mg/dL (8.5-10.1); MAGNESIUM 1.8 mg/dL (1.8-2.4)
[2020-03-06 07:19] LABS: CREATININE 0.2 mg/dL (0.55-1.3)
[2020-03-06 07:20] LABS: PHOSPHOROUS 3.9 mg/dL (2.5-4.9)
[2020-03-06 07:21] LABS: BILIRUBIN,TOTAL 0.7 mg/dL (0.2-1); TOT PROT 4.5 g/dl (6.4-8.2)
[2020-03-06 07:32] LABS: ARTERIAL BLOOD GAS pH 7.344 (7.350-7.450)
[2020-03-06 08:59] LABS: ANISOCYTOSIS 2+; MACROCYTOSIS 1+; PLATELET ESTIMATE DECREASED
[2020-03-06] MEDS: DOCUSATE NA 100 MG/10 ML UNIT-DOSE CUPS NGT SCH (11:52)
[2020-03-06] MEDS: ASCORBIC ACID 500 MG TABLET (FP) NGT SCH ×2 (11:52→23:23)
[2020-03-06] MEDS: FAMOTIDINE 20 MG/50 ML IVPB 20 MG/50 ML MG IVPB SCH (11:52)
[2020-03-06] MEDS: ZINC SULFATE 220 MG CAPSULE (FP) NGT SCH (11:52)
[2020-03-06] MEDS: DEXAMETHASONE SOD PHOSPHATE 4 MG/1 ML VIAL IVPUSH SCH (11:52)
[2020-03-06] MEDS: CHOLECALCIFEROL (VIT D3) 1,000 UNIT (25 MCG) TABLET NR SCH (11:52)
[2020-03-06] MEDS: MIDODRINE HCL 2.5 MG TABLET NGT SCH ×3 (11:53→18:11)
[2020-03-06] MEDS: POLYETHYLENE GLYCOL 3350 119 GM BTL NGT SCH (11:53)
[2020-03-06] MEDS: SODIUM ZIRCONIUM CYCLOSILICATE (LOKELMA) 5 GM PACKET PO SCH (11:55)
[2020-03-06] MEDS: ENOXAPARIN NA (PORCINE) 80 MG/0.8 ML DISP.SYRIN SQ SCH ×2 (15:15→23:23)
[2020-03-06] MEDS ORDERED: NOREPINEPHRINE BITARTRATE 8,000 MCG in DEXTROSE 5%-WATER - 492 ML IV SCH (16:15)
[2020-03-06] MEDS: LACTATED RINGERS SOLUTION 1,000 ML/1,000 ML INFUS.BAG IV SCH (20:09)
[2020-03-06] MEDS ORDERED: FENTANYL IVPB 500 MCG/100 ML BAG IVPB SCH (21:45)
[2020-03-06] MEDS ORDERED: MIDAZOLAM 100 MG in SODIUM CHLORIDE 100 ML IVPB SCH (21:45)
[2020-03-06] MEDS: SENNOSIDES 8.8 MG/5 ML BULK BOTTLE NGT SCH (23:23)
[2020-03-07 00:21] VITALS: BP 48/34; TEMP 98.8
[2020-03-07 03:47] VITALS: PULSE 28
== END 2020-03-07 06:55 | disposition expired | DRG 870 ==
LOC: JER 09:50 → JERBED 13:40 → J4S 02-13 00:03 → JICU 02-15 16:03 → JICU-6 03-06 00:12
PROVIDERS: ADMIT Internal Medicine; ATTEND Internal Medicine Pulmonary Disease
PROC: XW033E5 Introduction of Remdesivir Anti-infective into Peripheral Vein, Percutaneous Approach, New Technology Group 5 (ICD-10-PCS; 2020-02-13)
PROC: XW13325 Transfusion of Convalescent Plasma (Nonautologous) into Peripheral Vein, Percutaneous Approach, New Technology Group 5 (ICD-10-PCS; 2020-02-13)
PROC: 5A1955Z Respiratory Ventilation, Greater than 96 Consecutive Hours (ICD-10-PCS; principal; 2020-02-16)
PROC: 0BH17EZ Insertion of Endotracheal Airway into Trachea, Via Natural or Artificial Opening (ICD-10-PCS; 2020-02-16)
PROC: 05HM33Z Insertion of Infusion Device into Right Internal Jugular Vein, Percutaneous Approach (ICD-10-PCS; 2020-02-17)
PROC: B543ZZA Ultrasonography of Right Jugular Veins, Guidance (ICD-10-PCS; 2020-02-17)
PROC: 05HN33Z Insertion of Infusion Device into Left Internal Jugular Vein, Percutaneous Approach (ICD-10-PCS; 2020-02-28)
PROC: B544ZZA Ultrasonography of Left Jugular Veins, Guidance (ICD-10-PCS; 2020-02-28)
DX: A41.9 Sepsis, unspecified organism (principal); U07.1 COVID-19; J12.82 Pneumonia due to coronavirus disease 2019; J96.01 Acute respiratory failure with hypoxia; R65.21 Severe sepsis with septic shock; K72.00 Acute and subacute hepatic failure without coma; N17.9 Acute kidney failure, unspecified; E87.2 Acidosis; I24.8 Other forms of acute ischemic heart disease; F32.9 Major depressive disorder, single episode, unspecified; D69.6 Thrombocytopenia, unspecified; E87.5 Hyperkalemia; R74.01 Elevation of levels of liver transaminase levels; E78.5 Hyperlipidemia, unspecified; D64.9 Anemia, unspecified; N18.9 Chronic kidney disease, unspecified; R00.1 Bradycardia, unspecified; I95.9 Hypotension, unspecified
CPT/HCPCS: 36415; 36430; 36600; 71045-TC-FY; 76705-TC; 80048; 80053; 80076; 81003; 82436; 82550; 82553; 82565; 82728; 82803; 82962; 83036; 83605; 83615; 83735; 83880; 84100; 84133; 84300; 84443; 84484; 85025; 85027; 85379; 85610; 85730; 86140; 86704; 86706; 86707; 86708; 86709; 86803; 86850; 86900; 86901; 87040; 87070; 87077; 87086; 87186; 87205; 87324; 87340; 87389; 87449; 87804; 87902; 93005; 93010; 94002; 94660; 99291; C9803; G0480; J0131; P9017; U0003